=== PATIENT | female | born 1960 | race Caucasian/White ===

== ENCOUNTER → 2018-06-28 09:33 | Outpatient (CLI) | payer OTHER, SELFPAY ==
--- NOTE | 2018-06-28 09:38 | RAD_ITS ---
STUDY: X-RAY - LEFT KNEE REASON FOR EXAM: Female, 57 years old. Knee pain, fall 6 months ago. TECHNIQUE: 3 view(s) of the knee. COMPARISON: None. FINDINGS: Normal visualized distal femur. Normal visualized proximal tibia and fibula. Normal proximal tibiofibular articulation. Is mild medial and lateral compartment joint space loss without significant osteophyte formation. Ultrasound Normal patellofemoral articulation. The soft tissue structures are unremarkable. RAD/Knee 3 Views IMPRESSION: Mild medial lateral joint space arthrosis with otherwise no significant osteophyte formation or effusion. No evidence of acute fracture. Electronically Signed: Noel Tubbs DO at 9:07 EDT , Service support ,
== END ==
PROVIDERS: Family Provider Family Medicine; PCP Family Medicine; Visit Provider Family Medicine
DX: M25.562 Pain in left knee (principal)
CPT/HCPCS: 73562

== ENCOUNTER → 2018-08-21 14:02 | Outpatient (CLI) | payer OTHER, SELFPAY ==
[2018-08-21 16:10] LABS: Anion Gap 10 (5-15); BUN 18 mg/dL (7-18); BUN/Creat Ratio 20.2 RATIO (10-20); Calcium,Total 8.1 mg/dL (8.5-10.1); Chloride 103 mmol/L (98-107); Creatinine, Serum 0.89 mg/dL (0.55-1.02); EST Glomerular Filtration Rate 69 mL/min (>60); Est Glom Filt Rate - Afr Amer 84 mL/min (>60); Glucose 107 mg/dL (74-106); Potassium 3.4 mmol/L (3.5-5.1); Sodium Level 141 mmol/L (136-145); Thyroid Stim Hormone (TSH) 1.61 uIU/mL (0.358-3.74)
== END ==
PROVIDERS: Family Provider Family Medicine; PCP Family Medicine; Visit Provider Family Medicine
DX: E66.9 Obesity, unspecified (principal)
CPT/HCPCS: 36415; 80048; 84443

== ENCOUNTER → 2018-09-16 14:41 | Outpatient (CLI) | payer OTHER, SELFPAY ==
[2018-09-07 13:07] VITALS: BMI 38.0
[2018-09-20 12:20] LABS: HPV Reflexed? NOT INDICATED
== END ==
PROVIDERS: Visit Provider Obstetrics & Gynecology
DX: Z12.4 Encounter for screening for malignant neoplasm of cervix (principal)
CPT/HCPCS: 88175; G0145

== ENCOUNTER → 2018-10-11 20:34 | Outpatient (CLI) | payer OTHER, SELFPAY | PROVIDERS: Referring Provider Internal Medicine Critical Care Medicine; Visit Provider Internal Medicine Critical Care Medicine | DX: G47.33 Obstructive sleep apnea (adult) (pediatric) (principal) | CPT/HCPCS: 95811 ==

== ENCOUNTER → 2018-11-13 12:20 | Outpatient (CLI) | payer OTHER, SELFPAY ==
[2018-09-07 13:07] VITALS: BMI 38.0
--- NOTE | 2018-11-13 12:22 | BI_ITS ---
MAMMOGRAPHY - BILATERAL SCREENING REASON FOR EXAM: Female, 57 years old. Routine annual screening examination. PERTINENT HISTORY: Aunt with breast cancer. TECHNIQUE: Digital bilateral breast puma (3D mammographic acquisition) in the CC and MLO projections. 2-D mediolateral oblique (MLO) and craniocaudad (CC) views of both breasts were obtained. CAD: Full Field Digital Mammography with Computer Added Detection was performed. COMPARISON: Comparison is made with prior study dated March 01, 2016 and July 22, 2014. FINDINGS: Breast Composition: The breasts are almost entirely fatty. There are no dominant masses or suspicious calcifications. No other significant abnormalities are identified. There has been no significant change since the prior study. BI/SCREENING MAMM (CAD), BILAT IMPRESSION: Stable bilateral screening mammogram. Yearly follow-up mammogram recommended. (A) ASSESSMENT CATEGORY: BIRADS Category 1: Negative. A letter regarding these results will be sent to the patient by the facility within 30 days. Approximately 10% of breast cancers are not detected by mammography. A normal mammogram should not delay biopsy of a clinically suspicious abnormality. [id number] Electronically Signed: Pa Foley MD at 14:20 EST , Service support ,
== END ==
PROVIDERS: Family Provider Family Medicine; PCP Family Medicine; Referring Provider Obstetrics & Gynecology; Visit Provider Obstetrics & Gynecology
DX: Z12.31 Encounter for screening mammogram for malignant neoplasm of breast (principal)
CPT/HCPCS: 77063; 77067

== ENCOUNTER 2019-04-25 12:50 | Emergency (ER) | payer OTHER, SELFPAY ==
[2018-11-21 10:54] VITALS: BMI 38.0
[2019-04-25 12:55] VITALS: BP 186/105; PULSE 74; RESP 24; TEMP 37.2; O2SAT 97; BMI 38.0
--- NOTE | 2019-04-25 13:01 | EKG12_ITS ---
Test Reason : CP Blood Pressure : / mmHG Vent. Rate : 071 BPM Atrial Rate : 071 BPM P-R Int : 158 ms QRS Dur : 086 ms QT Int : 408 ms P-R-T Axes : 038 014 061 degrees QTc Int : 443 ms Normal sinus rhythm Low voltage QRS Borderline ECG Confirmed by SAMANTHA COOK, SELVIN ([id number]), editor magazine LORRAINE SOMMER ([id number]) on 04/28/2019 12:56:09 PM Referred By: BARBARA Confirmed By:SELVIN SINGH MD
[2019-04-25 13:02] VITALS: BP 165/90; PULSE 65; PULSE 66; RESP 24; TEMP 37.2; O2SAT 97; O2SAT 98
--- NOTE | 2019-04-25 13:06 | RAD_ITS ---
STUDY: X-RAY CHEST REASON FOR EXAM: Female, 58 years old. Chest pain. TECHNIQUE: Single AP portable view of the chest. COMPARISON: None. FINDINGS: EKG electrodes are seen. The lungs are clear and expanded. There is no demonstrated pleural abnormality. Normal size heart. Normal mediastinum and ayse. Normal visualized pulmonary arteries. There is atherosclerotic tortuosity of the aortic arch and descending thoracic aorta. Normal visualized thoracic spine. Normal visualized ribs, clavicles, and shoulders. There is no demonstrated abnormality of the visualized soft tissue structures of the upper abdomen. RAD/Chest 1 View (Portable) IMPRESSION: Chest pain. The lungs are clear. Electronically Signed: Pa Foley, at 13:38 EDT , Service support ,
[2019-04-25 13:08] VITALS: BMI 40.7
[2019-04-25 13:09] LABS: Absolute Lymphocyte Count 3.05 X10^3/uL (0.83-4.51); Absolute Neutrophil Count 3.5 X10^3/uL (2.0-7.7); Basophil% 1.3 % (0-1); Eosinophil# 0.36 X10^3/uL; Eosinophils% 4.7 % (0-5); Hematocrit 40.3 % (37-47); Hemoglobin 13.2 g/dL (12.0-15.0); Lymphocyte # 3.05 X10^3/ul (4.0); Lymphocyte % 39.4 % (19-41); Mean Corp Hgb Conc 32.8 g/dL (32-36); Mean Corpuscular Hgb 28.6 pg (27.0-32.0); Mean Corpuscular Volume 87.2 fL (81-99); Mean Platelet Vol. 10.1 fl (6.2-12.0); Monocyte# 0.68 X10^3/uL; Monocyte% 8.8 % (0-10); NRBC Flagged by Analyzer 0 % (0-5); Neutrophil # 3.53 X10^3/uL (2.7-7.7); Neutrophil % 45.5 % (47-70); Platelet Count 260 K/mm3 (150-450); RBC Distribution Width CV 13.4 % (11.6-14.6); RBC Distribution Width SD 42.7 fl (35.1-43.9); Red Blood Count 4.62 M/mm3 (4.2-5.4); White Blood Count 7.7 K/mm3 (4.4-11.0)
--- NOTE | 2019-04-25 13:16 | ED.VISSUMM ---
- ER Visit Summary Date of Service: 04/25/19 Chief Complaint: Right chest wall and posterior shoulder pain History of Present Illness: The patient is a 58 F prior cardiac disease. Negative stress test within the last 5 years. Patient states she was in the shower turn and felt pain on her right chest and posterior shoulder. Hurts to move. She thinks she injured her chest wall and muscles. Prior to today she is had no recent exertional chest pain or exertional dyspnea. No history of DVT or PE. No recent travel, surgery or immobilization. She does have a history of hypertension. She denies any hemoptysis. No leg swelling. She took ibuprofen prior to arrival. Physical Examination: Middle-aged female no acute distress. Vital signs are stable. Afebrile. Pulse ox is 97% on room air no signs of hypoxia. HEENT exam unremarkable. Neck nontender no JVD. Lungs clear to auscultation bilaterally. Heart regular rate and rhythm no murmur rate about 70. Chest wall reproducibly tender over right chest wall. No subcu air crepitance. No bruising. Abdomen soft and nontender. Normal bowel sounds no peritoneal signs. Remedies moves all 4. Calves are nontender without edema or cords. Neurologically she is awake and alert with no focal motor deficits. Back the soft tissue along her scapula medially is tender to palpation consistent with a myofascial strain. Clinically I think this is a myofascial strain. Test Results: CBC normal white count of 7. Normal hemoglobin. Chemistries are normal. Troponin normal. EKG sinus rhythm rate 71 no acute abnormality. No ischemia no AL. Chest x-ray normal cardiac silhouette mediastinum. No acute abnormality one view portable read by myself and radiologist. Emergency Department Course and Treatment: Undergo cardiac work-up but clinically I think this is chest wall and posterior shoulder strain. Repeat exam 1520 unchanged. Consistent with chest wall strain. Treatment Plan:. Motrin for pain. Follow-up as needed. Disposition: Discharge Impression: Acute chest wall and right posterior shoulder upper back muscle strain This note was generated with [employer] dictation software. It may contain incorrect words, spelling, and punctuation that were not noted in review of the chart prior to signing ED Disposition - Plan for ED Patient: Referrals: Raul Brooks MD [Primary Care Provider] -
[2019-04-25 13:29] LABS: Anion Gap 3 (5-15); BUN 17 mg/dL (7-18); BUN/Creat Ratio 20.8 RATIO (10-20); Calcium,Total 8.9 mg/dL (8.5-10.1); Chloride 104 mmol/L (98-107); Creatinine, Serum 0.82 mg/dL (0.55-1.02); EST Glomerular Filtration Rate 76 mL/min (>60); Est Glom Filt Rate - Afr Amer 92 mL/min (>60); Estimated Creatinine Clearance 75.44 ml/min; Glucose 107 mg/dL (74-106); Potassium 3.6 mmol/L (3.5-5.1); Sodium Level 136 mmol/L (136-145)
[2019-04-25 15:20] VITALS: BP 140/80; PULSE 55; RESP 20; O2SAT 96
--- NOTE | 2019-04-25 15:20 | ED.DEP ---
ED Disposition - Plan for ED Patient: Disposition: Home or Assisted Living Instructions: Chest Wall Strain Referrals: Raul Brooks MD [Primary Care Provider] - As Needed Additional Instructions: Motrin for pain and inflammation in your chest wall. Ice to decrease inflammation. Hot shower warm bath to relax the muscles.
== END 2019-04-25 15:30 | disposition home or self-care (01) ==
PROVIDERS: Emergency Provider Emergency Medicine; Family Provider Family Medicine; PCP Family Medicine
DX: S29.011A Strain of muscle and tendon of front wall of thorax, initial encounter (principal); S29.012A Strain of muscle and tendon of back wall of thorax, initial encounter; X58.XXXA Exposure to other specified factors, initial encounter; Y93.E1 Activity, personal bathing and showering; Y92.9 Unspecified place or not applicable; I10 Essential (primary) hypertension; Z85.820 Personal history of malignant melanoma of skin; Z79.899 Other long term (current) drug therapy
CPT/HCPCS: 71045; 80048; 84484; 85025; 93005; 99284; A4216

== ENCOUNTER → 2019-08-23 10:01 | Outpatient (CLI) | payer OTHER, SELFPAY ==
[2019-08-23 12:47] LABS: Anion Gap 7 (5-15); BUN 14 mg/dL (7-18); BUN/Creat Ratio 17.9 RATIO (10-20); Calcium,Total 8.9 mg/dL (8.5-10.1); Chloride 103 mmol/L (98-107); Cholesterol 172 mg/dL (200); Creatinine, Serum 0.78 mg/dL (0.55-1.02); EST Glomerular Filtration Rate 80 mL/min (>60); Est Glom Filt Rate - Afr Amer 97 mL/min (>60); Glucose 91 mg/dL (74-106); High Density Lipoprotein 62 mg/dL; Sodium Level 140 mmol/L (136-145); Thyroid Stim Hormone (TSH) 1.52 uIU/mL (0.358-3.74); Triglycerides 88 mg/dL; Very Low Density Lipoprotein 18 mg/dL (5-40)
== END ==
PROVIDERS: Family Provider Family Medicine; PCP Family Medicine; Referring Provider Family Medicine; Visit Provider Family Medicine
DX: E03.9 Hypothyroidism, unspecified (principal); I10 Essential (primary) hypertension
CPT/HCPCS: 36415; 80048; 80061; 84443

== ENCOUNTER → 2019-12-02 | Outpatient (CLI) | payer OTHER, SELFPAY ==
[2019-12-01 15:36] VITALS: BMI 38.0
[2019-12-05 05:45] LABS: HPV APTIMA, High Risk Negative (Negative)
== END | disposition home or self-care (01) ==
LOC: LABSPEC 14:55
PROVIDERS: PCP Family Medicine; Referring Provider Obstetrics & Gynecology; Visit Provider Obstetrics & Gynecology
DX: Z12.4 Encounter for screening for malignant neoplasm of cervix (principal)
CPT/HCPCS: 87624; 88175; G0145

== ENCOUNTER → 2019-12-23 12:59 | Outpatient (CLI) | payer OTHER, SELFPAY ==
[2019-12-01 15:36] VITALS: BMI 38.0
[2019-12-12 17:48] VITALS: BMI 40.1
--- NOTE | 2019-12-23 12:53 | BD_ITS ---
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 COMPARISON: None. FINDINGS: Lumbar Spine (L1-L4): g/cm2 (1.053) / T-score (-0.9) / Z-score (0.2) Findings are suggestive of normal bone density with a low fracture risk. Left Femur Total: g/cm2 (0.945) / T-score (-0.5) / Z-score (0.4) Left Femoral Neck: g/cm2 (0.894) / T-score (-1.0) / Z-score (0.2) Right Femur Total: g/cm2 (1.018) / T-score (0.1) / Z-score (0.9) Right Femoral Neck: g/cm2 (1.025) / T-score (-0.1) / Z-score (1.1) BD/Dexa Bone Density Study IMPRESSION: The patient is considered normal as outlined below according to World Josue Organization (WHO) criteria with a low fracture risk. Reference Information: The T-score is the number of standard deviations above or below the standard which is normal for young adults at their peak bone mineral density. The World Health Organization (WHO) interprets the T-scores as follows: Above -1 Normal bone density Between -1 and -2.5 Osteopenia Equal to / or below -2.5 Osteoporosis As a practical clinical guideline, osteopenia may be graded as follows: Mild -1 through -1.5 Moderate -1.6 through -2.0 Severe -2.1 through -2.4 The Z-score is the number of standard deviations above or below age-matched controls. A Z-score of less than -1.5 would be considered abnormal. References: 1. NIH Osteoporosis and Related Bone Diseases http://www.osteo.org 2. International Society for Clinical Densitometry http://www.iscd.org 3. National Osteoporosis Foundation http://www.nof.org Electronically Signed: Pa Foley, at 10:58 EDT , Service support ,
--- NOTE | 2019-12-23 13:01 | BI_ITS ---
MAMMOGRAPHY - BILATERAL SCREENING REASON FOR EXAM: Female, 58 years old. Routine annual screening examination. PERTINENT HISTORY: Aunt with breast cancer. TECHNIQUE: Digital bilateral breast abdoulaye (3D mammographic acquisition) in the CC and MLO projections. 2-D mediolateral oblique (MLO) and craniocaudad (CC) views of both breasts were obtained. CAD: Full Field Digital Mammography with Computer Added Detection was performed. COMPARISON: Comparison is made with prior study dated July 13, 2019 and March 01, 2016. FINDINGS: Breast Composition: The breasts are almost entirely fatty. There are no dominant masses or suspicious calcifications. No other significant abnormalities are identified. There has been no significant change since the prior study. BI/SCREEN MAMM (CAD) W/ABDOULAYE BILAT IMPRESSION: Stable bilateral screening mammogram. Yearly follow-up mammogram recommended. (A) ASSESSMENT CATEGORY: BIRADS Category 1: Negative. A letter regarding these results will be sent to the patient by the facility within 30 days. Approximately 10% of breast cancers are not detected by mammography. A normal mammogram should not delay biopsy of a clinically suspicious abnormality. [id number] Electronically Signed: Pa Foley, at 14:28 EDT , Service support ,
== END ==
PROVIDERS: PCP Family Medicine; Referring Provider Obstetrics & Gynecology; Visit Provider Obstetrics & Gynecology
DX: Z12.31 Encounter for screening mammogram for malignant neoplasm of breast (principal); Z13.820 Encounter for screening for osteoporosis
CPT/HCPCS: 77063; 77067; 77080

== ENCOUNTER → 2020-04-17 09:35 | Outpatient (CLI) | payer OTHER, SELFPAY ==
[2019-12-12 17:48] VITALS: BMI 40.1
[2020-04-17 10:57] LABS: Anion Gap 5 (5-15); BUN 16 mg/dL (7-18); BUN/Creat Ratio 22.7 RATIO (10-20); Calcium,Total 8.5 mg/dL (8.5-10.1); Chloride 101 mmol/L (98-107); Cholesterol 172 mg/dL (200); Creatinine, Serum 0.71 mg/dL (0.55-1.02); EST Glomerular Filtration Rate 90 mL/min (>60); Est Glom Filt Rate - Afr Amer 109 mL/min (>60); Glucose 104 mg/dL (74-106); High Density Lipoprotein 60 mg/dL; Potassium 3.9 mmol/L (3.5-5.1); Sodium Level 139 mmol/L (136-145); Thyroid Stim Hormone (TSH) 1.11 uIU/mL (0.358-3.74); Triglycerides 69 mg/dL; Very Low Density Lipoprotein 14 mg/dL (5-40)
== END ==
PROVIDERS: PCP Family Medicine; Referring Provider Family Medicine; Visit Provider Family Medicine
DX: I10 Essential (primary) hypertension (principal); E03.9 Hypothyroidism, unspecified
CPT/HCPCS: 36415; 80048; 80061; 84443

== ENCOUNTER → 2020-10-18 08:56 | Outpatient (CLI) | payer OTHER, SELFPAY ==
[2019-12-12 17:48] VITALS: BMI 40.1
[2020-10-18 10:53] LABS: Anion Gap 6 (5-15); BUN 17 mg/dL (7-18); BUN/Creat Ratio 22.5 RATIO (10-20); Calcium,Total 8.7 mg/dL (8.5-10.1); Chloride 104 mmol/L (98-107); Cholesterol 178 mg/dL (200); Creatinine, Serum 0.76 mg/dL (0.55-1.02); EST Glomerular Filtration Rate 83 mL/min (>60); Est Glom Filt Rate - Afr Amer 101 mL/min (>60); Free T3 2.4 pg/mL (2.18-3.98); Glucose 90 mg/dL (74-106); High Density Lipoprotein 60 mg/dL; Potassium 3.8 mmol/L (3.5-5.1); Sodium Level 140 mmol/L (136-145); T4 Total, Thyroxin 9.8 ug/dL (4.8-13.9); Triglycerides 89 mg/dL; Very Low Density Lipoprotein 18 mg/dL (5-40)
== END ==
PROVIDERS: PCP Family Medicine; Referring Provider Family Medicine; Visit Provider Family Medicine
DX: I10 Essential (primary) hypertension (principal); E66.9 Obesity, unspecified; E03.9 Hypothyroidism, unspecified
CPT/HCPCS: 36415; 80048; 80061; 84436; 84443; 84481

== ENCOUNTER → 2021-08-27 11:26 | Outpatient (CLI) | payer OTHER, SELFPAY ==
[2021-08-27 13:10] LABS: Anion Gap 3 (5-15); BUN 17 mg/dL (7-18); BUN/Creat Ratio 23.5 RATIO (10-20); Chloride 104 mmol/L (98-107); Cholesterol 180 mg/dL (200); Creatinine, Serum 0.72 mg/dL (0.55-1.02); EST Glomerular Filtration Rate 87 mL/min (>60); Est Glom Filt Rate - Afr Amer 106 mL/min (>60); Free T3 2.6 pg/mL (2.18-3.98); Glucose 95 mg/dL (74-106); High Density Lipoprotein 61 mg/dL; Potassium 4.3 mmol/L (3.5-5.1); Sodium Level 139 mmol/L (136-145); T4 Free Direct 1.08 ng/dL (0.76-1.46); Thyroid Stim Hormone (TSH) 1.29 uIU/mL (0.358-3.74); Triglycerides 80 mg/dL; Very Low Density Lipoprotein 16 mg/dL (5-40)
== END ==
PROVIDERS: PCP Family Medicine; Visit Provider Family Medicine
DX: Z00.00 Encounter for general adult medical examination without abnormal findings (principal); E03.9 Hypothyroidism, unspecified
CPT/HCPCS: 36415; 80048; 80061; 84439; 84443; 84481

== ENCOUNTER 2021-11-03 10:08 | Outpatient (CLI) | payer OTHER, SELFPAY ==
--- NOTE | 2021-11-03 10:10 | RAD_ITS ---
STUDY: X-RAY - RIGHT KNEE REASON FOR EXAM: Female, 60 years old. Knee pain. TECHNIQUE: 4 view(s) of the knee. COMPARISON: 09/22/2014. FINDINGS: Mild osteopenia. Normal visualized distal femur. Normal visualized proximal tibia and fibula. Normal proximal tibiofibular articulation. Mild medial compartmental arthrosis with small osteophytes. Mild arthrosis of the lateral compartment. Mild arthrosis of the patellofemoral compartment. The soft tissue structures are unremarkable. RAD/Knee 3 Views IMPRESSION: Mild osteopenia. Mild tricompartmental arthrosis. No acute abnormality, chondrocalcinosis, erosive changes or periostitis. Electronically Signed: Tj Vasquez MD at 11:38 EST ,
== END 2021-11-03 23:59 | disposition short-term general hospital (02) ==
LOC: MTLAB 10:09
PROVIDERS: PCP Family Medicine; Referring Provider Family Medicine; Visit Provider Family Medicine
DX: M17.11 Unilateral primary osteoarthritis, right knee (principal)
CPT/HCPCS: 73562

== ENCOUNTER 2021-11-19 11:34 | Outpatient (CLI) | payer OTHER, SELFPAY ==
--- NOTE | 2021-11-19 11:51 | RAD_ITS ---
STUDY: X-RAY - RIGHT ELBOW REASON FOR EXAM: Female, 60 years old. Right and marked shoulder pain. TECHNIQUE: 3 view(s) of the elbow. COMPARISON: None. FINDINGS: Normal visualized humerus, radius and ulna. Normal radiocapitellar and ulnotrochlear articulations. The soft tissue structures are unremarkable. RAD/Elbow min 3 Views IMPRESSION: Normal x-ray examination of the elbow. Electronically Signed: Rome Thorpe, at 13:00 EST ,
--- NOTE | 2021-11-19 11:51 | RAD_ITS ---
STUDY: X-RAY - RIGHT RADIUS AND ULNA REASON FOR EXAM: Female, 60 years old. Right elbow and forearm pain TECHNIQUE: 2 view(s) of the forearm. COMPARISON: None. FINDINGS: There is no demonstrated soft tissue swelling. Normal visualized radius. Normal visualized ulna. The joint spaces are within normal limits. RAD/Forearm 2 Views IMPRESSION: No demonstrated acute osseous changes. Electronically Signed: Rome Thorpe, at 13:01 EST ,
== END 2021-11-19 23:59 | disposition home or self-care (01) ==
LOC: LAB 11:36 → RAD 11:47
PROVIDERS: PCP Family Medicine; Visit Provider Nurse Practitioner Family
DX: M25.521 Pain in right elbow (principal); M79.631 Pain in right forearm
CPT/HCPCS: 73080; 73090

== ENCOUNTER 2022-01-25 13:21 | Outpatient (CLI) | payer OTHER, SELFPAY ==
--- NOTE | 2022-01-25 13:24 | MRI_ITS ---
STUDY: MR Knee W/O Contrast 01/25/2022 5:14 PM REASON FOR EXAM: Female, 61 years old. fall with instability TECHNIQUE: Standardized fat and water weighted pulse sequences were obtained in all 3 orthogonal planes. COMPARISON: None. FINDINGS: Normal medial meniscus. Normal hyaline cartilage of the medial femorotibial compartment. Normal medial femoral condyle and tibial plateau. Normal medial collateral ligamentous complex (MCL). Normal distal semimembranosus, gracilis and semitendinosus tendons. There is a horizontal tear of the posterior horn of the lateral meniscus with inferior surfacing. There is a lateral perimeniscal cyst. Normal hyaline cartilage of the lateral femorotibial compartment. Normal lateral femoral condyle and tibial plateau. There is a bone bruise inferior to the tibial spines. Normal proximal tibiofibular articulation. Normal lateral collateral (fibular) ligament. Normal popliteus tendon. Normal biceps femoris tendon. Normal anterior cruciate ligament (ACL). Normal posterior cruciate ligament (PCL). Normal congruent patellofemoral articulation. Normal hyaline cartilage of the patellofemoral compartment. Normal medial and lateral patellar retinaculum. Normal quadriceps tendon. Normal patellar tendon. Normal Hoffa''s fat pad. There is a small suprapatellar joint effusion. There is a Patel''s cyst. The soft tissues are unremarkable. The otherwise visualized osseous structures are unremarkable. MRI/Lower Ext Joint Only (Routine) IMPRESSION: There is a small suprapatellar joint effusion. There is a horizontal tear of the posterior horn of the lateral meniscus with inferior surfacing. There is a lateral perimeniscal cyst. There is a bone bruise inferior to the tibial spines. Electronically Signed: Syed James MD at 17:22 EDT Reading Location ID and State: [facility] / [place] , Service support ,
== END 2022-01-25 23:59 | disposition home or self-care (01) ==
PROVIDERS: PCP Family Medicine; Referring Provider Orthopaedic Surgery; Visit Provider Orthopaedic Surgery
DX: M25.361 Other instability, right knee (principal); W19.XXXA Unspecified fall, initial encounter
CPT/HCPCS: 73721

== ENCOUNTER → 2022-10-31 | Outpatient (CLI) | payer OTHER, SELFPAY ==
[2022-11-06 17:03] LABS: HPV APTIMA, High Risk Negative (Negative)
== END | disposition home or self-care (01) ==
LOC: LABSPEC 13:53
PROVIDERS: PCP Family Medicine; Visit Provider Student in an Organized Health Care Education/Training Program
DX: Z12.4 Encounter for screening for malignant neoplasm of cervix (principal)
CPT/HCPCS: 87624; 88175; G0145

== ENCOUNTER → 2022-11-07 | Outpatient (CLI) | payer OTHER, SELFPAY ==
--- NOTE | 2022-11-07 06:53 | BI_ITS ---
MAMMOGRAPHY - BILATERAL SCREENING REASON FOR EXAM: Female, 61 years old. Routine annual screening examination. PERTINENT HISTORY: Aunt with breast cancer. TECHNIQUE: Digital bilateral breast abdoulaye (3D mammographic acquisition) in the CC and MLO projections. 2-D mediolateral oblique (MLO) and craniocaudad (CC) views of both breasts were obtained. CAD: Full Field Digital Mammography with Computer Added Detection was performed. COMPARISON: Comparison is made with prior study of 12/23/2019 and 03/02/2019. FINDINGS: Breast Composition: The breasts are almost entirely fatty. There are no dominant masses or suspicious calcifications. No other significant abnormalities are identified. There has been no significant change since the prior study. BI/SCRN MAMM (CAD)W/ABDOULAYE BILAT IMPRESSION: Stable bilateral screening mammogram. Yearly follow-up mammogram recommended. (A) ASSESSMENT CATEGORY: BIRADS Category 1: Negative. A letter regarding these results will be sent to the patient by the facility within 30 days. Approximately 10% of breast cancers are not detected by mammography. A normal mammogram should not delay biopsy of a clinically suspicious abnormality. [id number] Electronically Signed: Pa Foley MD at 8:52 EST ,
== END | disposition home or self-care (01) ==
LOC: OPBI 06:51
PROVIDERS: PCP Family Medicine; Referring Provider Student in an Organized Health Care Education/Training Program; Visit Provider Student in an Organized Health Care Education/Training Program
DX: Z12.31 Encounter for screening mammogram for malignant neoplasm of breast (principal); Z80.3 Family history of malignant neoplasm of breast
CPT/HCPCS: 77063; 77067

== ENCOUNTER 2023-03-14 07:35 | Day surgery (SDC) | payer OTHER, SELFPAY ==
[2023-03-14 07:47] VITALS: BP 160/86; PULSE 79; RESP 16; TEMP 36.5; O2SAT 93; BMI 37.8
[2023-03-14] MEDS: Lactated Ringers 1,000 ML 15 ML IV (07:55)
--- NOTE | 2023-03-14 08:30 | COLBX_PTH ---
PATIENT: CHARLES KHAN LOC: EN U#:[id number] AGE/SX: 62/F ROOM: RE03/14/[address]: Dr. Josemanuel Sarmiento DO : 1960 BED: DIS: 03/14/2023 SPEC #: [id number] RECD: 03/14/23 10:16 STATUS: JAMA REMichael #: [id number] JULIO: 03/14/23 08:[address]: Josemanuel Sarmiento DEPT: SURGICAL PATHOLOGY RECD BY: Lizbeth Madera ENTERED: 03/14/23 11:04 SP TYPE: COLON BX OTHR DR: Dr. Raul Brooks MD Tissues: Cecum, NOS Procedures: Surgery Specimen Level IV HEADER OPERATION: Colonoscopy ? open access (MAC) PRE-OP DIAGNOSIS: Screening TISSUE SUBMITTED: Cecum polyp MICROSCOPIC DIAGNOSIS Cecal polyp, biopsy: Fragments of hyperplastic polyp. AM:winsome 03/15/2023 MICROSCOPIC DESCRIPTION Slides are reviewed. GROSS DESCRIPTION Received in fixative is one container labeled with the patient's name and designated cecum polyp. The specimen consists of multiple irregular fragments of light harry soft tissue that in aggregate measure 1.0 x 0.2 x 0.1 cm. The specimen is totally submitted in one cassette. / SJ:winsome 03/14/2023 TC:5 CPT: 05719
--- NOTE | 2023-03-14 08:45 | HP.PCM_ITS ---
HPI - General General Date of Admission: 03/14/23 Date of Service: 03/14/23 Chief Complaint: Screening colonoscopy HPI Narrative CHARLES KHAN, is a 62 F who presents today for screening colonoscopy. She had a colonoscopy approximately 12 years ago. She does not have any problems with her bowels. She has a past medical history of GERD, melanoma, hypothyroidism, hypertension which are all under control. Her surgeries are cholecystectomy, C- section, bunionectomy in the past. She is not having any problems with lower GI bleeding, constipation or diarrhea at this time. All other 16 review systems are negative except as pertinent positive mentioned HPI. [facility] Medical History (Updated 03/12/23 @ 15:13 by Poonam Melgar) Anxiety BiPAP (biphasic positive airway pressure) dependence Cancer Gastric reflux GERD (gastroesophageal reflux disease) History of melanoma HTN (hypertension) Hypothyroidism Non-smoker PAWAN (obstructive sleep apnea) Post-menopausal Sleep apnea Thyroid disease Wears glasses Home Medications cetirizine 10 mg tablet (Zyrtec) 10 mg PO DAILY 08/02/18 [History Last Taken Unknown] duloxetine 30 mg capsule,delayed release (Cymbalta) 60 mg PO BREAKFAST 08/02/18 [History Last Taken Unknown] levothyroxine 88 mcg tablet (Synthroid) 88 mcg PO DAILY 08/02/18 [History Last Taken 03/14/23 07:00] metoprolol succinate 25 mg tablet,extended release 24 hr (Toprol XL) 25 mg PO DAILY 08/02/18 [History Last Taken 03/14/23 07:00] omeprazole 20 mg capsule,delayed release 20 mg PO DAILY 08/02/18 [History Last Taken Unknown] duloxetine 30 mg capsule,delayed release 30 mg PO QHS 04/25/19 [History Last Taken Unknown] acetaminophen 500 mg tablet (Tylenol Extra Strength) 1,000 mg PO BID 01/09/23 [History Last Taken Unknown] ibuprofen 400 mg tablet 400 mg PO BID 01/09/23 [History Last Taken Unknown] zolpidem 5 mg tablet (Ambien) 5 mg PO QHS Insomnia 01/09/23 [History Last Taken Unknown] Allergy/AdvReac Type Severity Reaction Status Date / Time No Known Allergies Allergy Verified 03/14/23 07:47 Family History Father Hypertension Prostate cancer Son Diabetes type 1 Surgical History (Updated 03/12/23 @ 15:13 by Poonam Melgar) History of bunionectomy History of History of cholecystectomy Social History (Updated 01/09/23 @ 14:01 by Madelaine Neil) current occupational status: employed Smoking Status: Never smoker alcohol intake: never ROS Review of Systems ROS Unobtainable: other Constitutional Constitutional: Denies fatigue, fever(s), poor appetite, weight gain or weight loss ENT HEENT: Denies mouth lesions Cardiovascular Cardiovascular: Denies abdominal bloating, abdominal edema or abdominal pain Respiratory/Chest Respiratory/Chest: Denies change in mental status, change in phlegm color, chest congestion or chest tightness Gastrointestinal Gastrointestinal: Denies belching, bloating, change in bowel habits, change in stool character, chewing difficulty, coffee ground emesis, constipation, cramping, diarrhea, dyspepsia, dysphagia, early satiety, excessive flatus, fecal incontinence, heartburn, hematemesis, hematochezia, hemorrhoids, loose stools, melena, nausea, odynophagia, rectal bleeding, tenesmus, vomiting or weight changes Genitourinary Genitourinary: Denies abdominal discomfort, burning urination or itching Musculoskeletal Musculoskeletal: Reports as per HPI; Denies muscle weakness or myalgias Integumentary Integumentary: Denies jaundice Neurologic Neurologic: Denies lack of coordination or weakness Psychiatric Psychiatric: Denies confusion, depression, memory loss, mood swings, paranoia or suicidal ideation Endocrine Endocrinology: Denies systems reviewed and no addt'l complaints, except as documented Hematologic/Lymphatic Hematologic/Lymphatic: Denies anemia, easy bleeding, easy bruising or lymphadenopathy Allergic/Immunologic Allergic/Immunologic: Denies systems reviewed and no addt'l complaints, except as documented Vital Signs Vital Signs Vital Signs: 03/14/23 07:47 03/14/23 07:47 Temperature 97.7 F L Temperature Source Temporal Pulse Rate 79 Respiratory Rate 16 Respiratory Pattern Normal Blood Pressure 160/86 H Blood Pressure Mean 110 Blood Pressure Source Monitor Blood Pressure Position Semi-Fowlers Blood Pressure Location Left Arm Pulse Ox 93 Oxygen Delivery Method Room Air Weight Weight: 255 lb 11.779 oz Body Mass Index (BMI) 37.8 Physical Exam Const alert General Appearance: cooperative Orientation / Consciousness: oriented to person HEENT hearing grossly normal bilaterally Head and Scalp: normal to inspection Face and Sinus: face symmetric Nose: external nose normal Mouth: oral and palatal mucosa normal Eyes conjunctivae normal General Eye: normal appearance of both eyes Neck full ROM General: normal visual inspection Lymph Lymphatic: no lymphadenopathy noted Chest inspection of chest normal and palpation of chest normal Chest: symmetrical chest wall rise Resp normal respiratory effort Effort and Inspection: able to speak in complete sentences Cardio regular rate GI non-distended Percussion: normal to percussion Rectal Exam: deferred Neuro Speech: speech normal Gait (Neuro): normal gait Assessment & Plan Assessment/Plan (1) Encounter for screening for malignant neoplasm of colon: PLAN: She was explained alternatives, risk, benefits including not withstanding bleeding, infection, sepsis, perforation, need for emergent surgery . She will have an ASA of 2.
[2023-03-14 09:25] VITALS: BP 108/66; BP 160/86; PULSE 66; RESP 18; O2SAT 100
[2023-03-14 09:26] VITALS: BP 110/63; BP 160/86; PULSE 54; RESP 18; TEMP 36.4; O2SAT 100
--- NOTE | 2023-03-14 09:27 | OP.COLON_ITS ---
Patient Name: Faby Shah Procedure Date: 03/14/2023 8:41 AM Date of : 1960 Age: 62 Procedure: Colonoscopy Indications: Screening for colorectal malignant neoplasm Providers: Josemanuel Sarmiento DO Medicines: Monitored Anesthesia Care Patient Profile: This is a 62 year old female. Refer to note in patient chart for documentation of history and physical. Last Colonoscopy: more than 10 years ago. Complications: No immediate complications. Procedure: Pre-Anesthesia Assessment: - Prior to the procedure, a History and Physical was performed, and patient medications and allergies were reviewed. The patient is competent. The risks and benefits of the procedure and the sedation options and risks were discussed with the patient. All questions were answered and informed consent was obtained. Patient identification and proposed procedure were verified by the physician in the pre-procedure area. Mental Status Examination: alert and oriented. Airway Examination: normal oropharyngeal airway and neck mobility. Respiratory Examination: clear to auscultation. CV Examination: normal. Prophylactic Antibiotics: The patient does not require prophylactic antibiotics. Prior Anticoagulants: The patient has taken no previous anticoagulant or antiplatelet agents. ASA Grade Assessment: II - A patient with mild systemic disease. After reviewing the risks and benefits, the patient was deemed in satisfactory condition to undergo the procedure. The anesthesia plan was to use monitored anesthesia care (MAC). Immediately prior to administration of medications, the patient was re-assessed for adequacy to receive sedatives. The heart rate, respiratory rate, oxygen saturations, blood pressure, adequacy of pulmonary ventilation, and response to care were monitored throughout the procedure. The physical status of the patient was re-assessed after the procedure. After I obtained informed consent, the scope was passed under direct vision. Throughout the procedure, the patient's blood pressure, pulse, and oxygen saturations were monitored continuously. The pediatric colonoscope was introduced through the anus and advanced to the cecum, identified by appendiceal orifice and ileocecal valve. The colonoscopy was performed without difficulty. The patient tolerated the procedure well. The quality of the bowel preparation was good. Scope In: 8:52:48 AM Scope Withdrawal Time 0 hours 9 minutes 26 seconds Scope Out: 9:21:23 AM Total Procedure Duration Time 0 hours 28 minutes 35 seconds Findings: The perianal and digital rectal examinations were normal. A 5 mm polyp was found in the cecum. The polyp was sessile. The polyp was removed with a jumbo cold forceps. Resection and retrieval were complete. Verification of patient identification for the specimen was done. Estimated blood loss was minimal. The exam was otherwise normal throughout the examined colon. Impression: - One 5 mm polyp in the cecum, removed with a jumbo cold forceps. Resected and retrieved. Recommendation: - Discharge patient to home. - Resume previous diet. - Continue present medications. - Await pathology results. - Repeat colonoscopy in 5 years for surveillance. Procedure Code(s): --- Professional --- 71104, Colonoscopy, flexible; with biopsy, single or multiple CPT copyright 2017 [employer]. All rights reserved. The codes documented in this report are preliminary and upon shipping order clerk review may be revised to meet current compliance requirements. Josemanuel Sarmiento DO 03/14/2023 9:26:25 AM This report has been signed electronically. Number of Addenda: 0 Note Initiated On: 03/14/2023 8:41 AM
--- NOTE | 2023-03-14 09:27 | OP.CCLET_ITS ---
03/14/2023 Raul Brooks MD [address] [place] [address] Re : Colonoscopy procedure for Faby Shah Dear Dr. Brooks This procedure was performed on Tuesday, March 14, 2023. My impressions and recommendations are as follows: Impressions : - One 5 mm polyp in the cecum, removed with a jumbo cold forceps. Resected and retrieved. Recommendations : - Discharge patient to home. - Resume previous diet. - Continue present medications. - Await pathology results. - Repeat colonoscopy in 5 years for surveillance. My findings are described in the full procedure note, which is enclosed. If I can be of further assistance, please feel free to contact me at . Sincerely, Josemanuel Sarmiento, 03/14/2023 9:26:25 AM This report has been signed electronically.
[2023-03-14 09:34] VITALS: BP 113/66; BP 160/86; PULSE 56; RESP 18; O2SAT 100
[2023-03-14 09:39] VITALS: BP 116/78; BP 160/86; PULSE 57; RESP 18; TEMP 36.2; O2SAT 100
[2023-03-14 10:00] VITALS: BP 160/86
== END 2023-03-14 10:08 | disposition home or self-care (01) ==
LOC: EN 07:35 → AC 07:36
PROVIDERS: PCP Family Medicine; Referring Provider Family Medicine; Visit Provider Internal Medicine Gastroenterology
PROC: 0DJD8ZZ Inspection of Lower Intestinal Tract, Via Natural or Artificial Opening Endoscopic (ICD-10-PCS; CPT 45378; principal; 2023-03-14 08:25)
DX: Z12.11 Encounter for screening for malignant neoplasm of colon (principal); K21.9 Gastro-esophageal reflux disease without esophagitis; I10 Essential (primary) hypertension; K63.5 Polyp of colon; E03.9 Hypothyroidism, unspecified; G47.33 Obstructive sleep apnea (adult) (pediatric); Z90.49 Acquired absence of other specified parts of digestive tract
CPT/HCPCS: 45380; 88305; J7120; J2405

== ENCOUNTER → 2023-05-09 | Outpatient (CLI) | payer OTHER, SELFPAY ==
--- NOTE | 2023-05-09 17:00 | RAD_ITS ---
EXAM: XR LUMBOSACRAL SPINE COMPLETE WITH FLEXION/EXTENSION, 6 OR MORE VIEWS CLINICAL INDICATION: pain TECHNIQUE: Lateral, frontal, oblique and lateral flexion/extension views of the lumbar spine and sacrum. COMPARISON: No relevant prior studies available. FINDINGS: VERTEBRAE: There is no change in alignment with flexion or extension views. Preserved vertebral body height. No fracture. No spondylolisthesis. Preservation of the normal lumbar lordosis. No significant facet arthropathy. No instability. DISC SPACES: There is disc space narrowing at L4-5 and L5-S1. GASTROINTESTINAL TRACT: Unremarkable as visualized. Included bowel gas pattern is non-obstructive. OTHER FINDINGS: There is narrowing at these levels. RAD/L/S Spine w Bend Min 6 Vw IMPRESSION: 1. No acute osseous abnormalities of the lumbar spine. 2. Degenerative changes in the lower lumbar spine with disc space narrowing and bony neural foraminal narrowing. Electronically Signed: Jeremy Lozada MD at 19:02 EDT ,
== END | disposition home or self-care (01) ==
PROVIDERS: PCP Family Medicine; Referring Provider Family Medicine; Visit Provider Family Medicine
DX: M54.9 Dorsalgia, unspecified (principal)
CPT/HCPCS: 72114

== ENCOUNTER 2023-06-25 12:01 | Emergency (ER) | payer OTHER, SELFPAY ==
[2023-06-25 12:04] VITALS: BP 156/98; PULSE 80; RESP 14; TEMP 36.1; O2SAT 95; BMI 40.6
--- NOTE | 2023-06-25 12:19 | MRI_ITS ---
EXAM: MR LUMBAR SPINE WITHOUT INTRAVENOUS CONTRAST CLINICAL INDICATION: weakness, right leg, back pain TECHNIQUE: Multiplanar and multisequence MR images of the lumbar spine without intravenous contrast. COMPARISON: No relevant prior studies available. FINDINGS: VERTEBRAE: Vertebral body heights are preserved. Normal vertebral bodies and posterior elements. Normal alignment. No spondylolisthesis. There is preservation of the normal lumbar lordosis. SPINAL CORD: Normal. Normal position and signal intensity of the conus medullaris. SOFT TISSUES: Normal. DISCS/SPINAL CANAL/NEURAL FORAMINA: L1-L2: Normal. Normal disc height and morphology. Normal spinal canal and lateral recesses. Normal neuroforamina. L2-L3: Mild to moderate disc space narrowing. Broad-based disc protrusion, ligamentous hypertrophy and mild facet arthropathy results in mild narrowing of the spinal canal and neural foramina. L3-L4: Mild to moderate disc space narrowing. Broad-based disc protrusion, ligamentous hypertrophy and facet arthropathy results in mild to moderate narrowing of the spinal canal and moderate bilateral neural foraminal narrowing. L4-L5: Moderate disc space narrowing with Modic type II endplate changes. Broad-based disc protrusion, ligamentous hypertrophy and facet arthropathy results in mild spinal stenosis and moderate left and moderate to severe right neural foraminal stenosis. L5-S1: Mild posterior disc space narrowing broad-based disc protrusion and facet arthropathy results in minimal impression on the thecal sac and moderate bilateral neural foraminal narrowing. Left paracentral annular fissure is noted. MRI/Spine Lumbar (Routine) IMPRESSION: Multilevel disc and facet joint changes. Mild to moderate spinal stenosis at L3-4 and mild spinal stenosis at L2-3 and L4-5. Prominent multilevel neural foraminal narrowing as described. Electronically Signed: Benito Pratt MD at 14:14 EDT ,
--- NOTE | 2023-06-25 12:20 | ED.VIS.BACK ---
HPI History of Present Illness Chief Complaint: Back Detail of Chief Complaint: Back pain Informant: patient Narrative Narrative: Patient presents to the emergency department complaint of back pain x2 weeks. Patient was seen by her primary care physician and had plain x-ray of her back. She now has severe pain with standing and trying to walk. She complains of weakness in her right leg and feels like a noodle. She is still able to bear weight but has a hard time with steps. She denies loss of bowel or bladder function. She denies fever. She denies falls or injury to her back. She denies urinary symptoms. Patient was referred to back specialist but cannot get in for some time. Prior similar symptoms: No PFSH PFSH Medical History (Reviewed 04/12/23 @ 08:55 by Miladys Kennedy BUSINESS SUPPORT MANAGER, BUSINESS SUPPORT MANAGER-C) Anxiety BiPAP (biphasic positive airway pressure) dependence Cancer Gastric reflux GERD (gastroesophageal reflux disease) History of melanoma HTN (hypertension) Hypothyroidism Non-smoker PAWAN (obstructive sleep apnea) Post-menopausal Sleep apnea Thyroid disease Wears glasses Home Medications cetirizine 10 mg tablet (Zyrtec) 10 mg PO DAILY 08/02/18 [History Last Taken Unknown] duloxetine 30 mg capsule,delayed release (Cymbalta) 60 mg PO BREAKFAST 08/02/18 [History Last Taken Unknown] levothyroxine 88 mcg tablet (Synthroid) 88 mcg PO DAILY 08/02/18 [History Last Taken 03/14/23 07:00] metoprolol succinate 25 mg tablet,extended release 24 hr (Toprol XL) 25 mg PO DAILY 08/02/18 [History Last Taken 03/14/23 07:00] omeprazole 20 mg capsule,delayed release 20 mg PO DAILY 08/02/18 [History Last Taken Unknown] duloxetine 30 mg capsule,delayed release 30 mg PO QHS 04/25/19 [History Last Taken Unknown] acetaminophen 500 mg tablet (Tylenol Extra Strength) 1,000 mg PO BID 01/09/23 [History Last Taken Unknown] ibuprofen 400 mg tablet 400 mg PO BID 01/09/23 [History Last Taken Unknown] zolpidem 5 mg tablet (Ambien) 5 mg PO QHS Insomnia 01/09/23 [History Last Taken Unknown] methylprednisolone 4 mg tablets in a dose pack (Medrol (Mikey)) 4 mg PO DAILY #21 tabs 09/18/23 [Rx Last Taken Unknown] Allergy/AdvReac Type Severity Reaction Status Date / Time No Known Allergies Allergy Verified 06/25/23 12:03 Family History (Reviewed 04/12/23 @ 08:55 by Miladys Kennedy BUSINESS SUPPORT MANAGER, BUSINESS SUPPORT MANAGER-C) Father Hypertension Prostate cancer Son Diabetes type 1 Surgical History History of bunionectomy History of History of cholecystectomy Social History current occupational status: employed Smoking Status: Never smoker alcohol intake: never ROS ROS ED Review of Systems ROS Unobtainable: other Constitutional Constitutional ED: Reports lethargy; Denies chills, fever(s), sweats or weight loss Eyes Eyes: Denies blurry vision, change in vision or diplopia ENT ENT ED: Denies rhinorrhea or sore throat Cardiovascular Cardiovascular: Denies chest pain, orthopnea or racing heartbeat Respiratory/Chest Respiratory/Chest: Denies cough, dyspnea, dyspnea on exertion, orthopnea or sputum Gastrointestinal Gastrointestinal: Denies abdominal pain, diarrhea, nausea or vomiting Genitourinary Genitourinary ED: Denies dysuria, hematuria or urinary frequency Musculoskeletal Musculoskeletal: Reports back pain; Denies arthralgias, myalgias or neck pain Integumentary Denies abscess, Abrasions or rash Neurologic Neurologic: Reports weakness and other Details: Weakness right leg ; Denies headache(s) Psychiatric Psychiatric: Denies anxiety, depression or suicidal thoughts Endocrine Endocrinology: Denies polydipsia, polyphagia or polyuria Hematologic/Lymphatic Hematologic/Lymphatic: Denies easy bleeding, easy bruising or lymphadenopathy Allergic/Immunologic Allergic/Immunologic ED: Denies mouth swelling, tongue swelling or urticaria EXAM Physical Exam Const Vital Signs: 06/25/23 12:04 06/25/23 14:28 Temperature 97 F L Temperature Source Temporal Pulse Rate 80 68 Respiratory Rate 14 16 Blood Pressure 156/98 H 149/62 H Blood Pressure Mean 117 91 Pulse Ox 95 98 Oxygen Delivery Method Room Air Room Air Positive well nourished and well developed General Appearance ED: well developed and NAD HEENT Reports TM's clear and moist mucous membranes normocephalic and atraumatic; Negative for trauma or tenderness Tympanic Membrane ED: Yes TM's clear Eyes PERRL and EOMs intact bilaterally General Eye ED: Negative for pale conjunctiva or scleral icterus Neck no lymphadenopathy, supple and no JVD General: Negative for tenderness Chest Wall inspection of chest normal and palpation of chest normal Chest: Negative for tenderness Resp normal respiratory effort and clear to auscultation bilaterally Effort and Inspection: Negative for respiratory distress or pain with movement Auscultation: Negative for rhonchi, wheezes or diminished lung sounds Cardio regular rate, regular rhythm, S1 normal heart sound, S2 normal heart sound and no murmurs Peripheral Pulses: pulses 2+ throughout GI normal to inspection, nondistended, normoactive bowel sounds, soft to palpation, non-tender, non-distended and no masses Back/Spine no CVA tenderness and no thoracic nor lumbar tenderness Back/Spine Narrative: Patient with some tenderness over the lower lumbar spine diffusely. She has negative straight leg raises bilaterally. Deep tendon reflexes are diminished at the patella and Achilles at +1/4 bilaterally. She has normal L5 extension. She has normal sensation to light touch. Extremity normal to inspection General Extremety ED: Negative for edema General Extremity: Negative for edema Neuro oriented x3, CN's II-XII intact bilaterally, no sensory deficits noted and gait normal Sensorium / Orientation: awake, alert, oriented to person, oriented to place and oriented to time Motor Exam: strength 5/5 throughout and strength abnormal Psych mental status grossly normal Skin no rashes or lesions noted and no wounds MDM MDM MDM Narrative Medical decision making narrative: Presents with progressive back pain for last 2 days and now complaining of weakness to her right leg. Concern about radiculopathy. Patient has already had plain x-rays of her back. Patient will have an MRI of her lumbar spine to evaluate further. MRI was read as multilevel disc and facet joint changes. She had mild to moderate spinal stenosis at L3-4 and mild spinal stenosis at L2-3 and L4-5. Patient with prominent multilevel neural foraminal narrowing. Case was discussed with Dr. Carlson. He asked that patient follow-up with his office in 2 days. I will write patient for Medrol Dosepak. Patient will be discharged to home and advised to return if worsening pain, increased weakness, loss of bowel or bladder function, or condition should worsen anyway Radiography Diagnostic Testing: Clinical Impression(s) from Imaging Studies Lumbar Spine MRI 06/25/23 12:19 IMPRESSION: Multilevel disc and facet joint changes. Mild to moderate spinal stenosis at L3-4 and mild spinal stenosis at L2-3 and L4-5. Prominent multilevel neural foraminal narrowing as described. Electronically Signed: Benito Pratt MD at 14:14 EDT , Discharge Plan Triage Chief Complaint: Back ED Provider: Makenzie Meek Dx/Rx/DC Orders Clinical Impression: Lumbar radiculopathy Instructions: ED Sciatica Prescriptions: New methylprednisolone [Medrol (Mikey)] 4 mg tablets,dose pack 4 mg PO DAILY Qty: 21 0RF No Action levothyroxine [Synthroid] 88 mcg tablet 88 mcg PO DAILY metoprolol succinate [Toprol XL] 25 mg tablet extended release 24 hr 25 mg PO DAILY omeprazole 20 mg capsule,delayed release(DR/EC) 20 mg PO DAILY duloxetine [Cymbalta] 30 mg capsule,delayed release(DR/EC) 60 mg PO BREAKFAST cetirizine [Zyrtec] 10 mg tablet 10 mg PO DAILY zolpidem [Ambien] 5 mg tablet 5 mg PO QHS acetaminophen [Tylenol Extra Strength] 500 mg tablet 1,000 mg PO BID ibuprofen 400 mg tablet 400 mg PO BID duloxetine 30 MG capsule,delayed release(DR/EC) 30 mg PO QHS Primary Care Provider: Raul Brooks Referrals: Arturo Carlson DO [Med Staff - Active Staff] - 2 Days Raul Brooks MD [Primary Care Provider] - Disposition Disposition: Home, Self Care Discharge Date/Time: 06/25/23 15:35
[2023-06-25] MEDS: LORazepam 1 MG Tablet PO (12:23)
[2023-06-25 14:28] VITALS: BP 149/62; PULSE 68; RESP 16; O2SAT 98
== END 2023-06-25 15:35 | disposition home or self-care (01) ==
PROVIDERS: Emergency Provider Emergency Medicine; PCP Family Medicine; Visit Provider Emergency Medicine
DX: M54.16 Radiculopathy, lumbar region (principal); I10 Essential (primary) hypertension; Z85.820 Personal history of malignant melanoma of skin; F41.9 Anxiety disorder, unspecified; E03.9 Hypothyroidism, unspecified; K21.9 Gastro-esophageal reflux disease without esophagitis; G47.33 Obstructive sleep apnea (adult) (pediatric); Z79.899 Other long term (current) drug therapy; Z90.49 Acquired absence of other specified parts of digestive tract
CPT/HCPCS: 72148; 99284

== ENCOUNTER → 2023-07-20 | Outpatient (CLI) | payer OTHER, SELFPAY ==
[2023-07-20 10:02] LABS: Absolute Lymphocyte Count 1.94 X10^3/uL (0.83-4.51); Absolute Neutrophil Count 3.3 X10^3/uL (2.0-7.7); Basophil# 0.04 X10^3/uL; Basophil% 0.7 % (0-1); Eosinophil# 0.25 X10^3/uL; Eosinophils% 4.2 % (0-5); Hematocrit 39.1 % (37-47); Hemoglobin 12.3 g/dL (12.0-15.0); Lymphocyte # 1.94 X10^3/ul (0.83-4.51); Lymphocyte % 32.7 % (19-41); Mean Corp Hgb Conc 31.5 g/dL (32-36); Mean Corpuscular Hgb 27.6 pg (27.0-32.0); Mean Corpuscular Volume 87.7 fL (81-99); Mean Platelet Vol. 10.1 fl (6.2-12.0); Monocyte# 0.43 X10^3/uL; Monocyte% 7.2 % (0-10); NRBC Flagged by Analyzer 0 % (0-5); Neutrophil # 3.27 X10^3/uL (2.7-7.7); Platelet Count 294 K/mm3 (150-450); RBC Distribution Width CV 14.7 % (11.6-14.6); RBC Distribution Width SD 47.8 fl (35.1-43.9); Red Blood Count 4.46 M/mm3 (4.2-5.4); White Blood Count 5.9 K/mm3 (4.4-11.0)
[2023-07-20 10:32] LABS: Vitamin D,25 Hydroxy 21.1 ng/mL
[2023-07-20 10:43] LABS: ALB/GLOB Ratio 0.9 RATIO (0.9-2.4); AST(SGOT) 28 U/L (15-37); Alanine Aminotransfer ALT/SGPT 40 U/L (13-56); Albumin, Serum 3.3 g/dL (3.2-5.0); Alkaline Phosphatase 69 U/L (45-117); Anion Gap 4 (5-15); BUN 21 mg/dL (7-18); BUN/Creat Ratio 31.3 RATIO (10-20); Calcium,Total 8.6 mg/dL (8.5-10.1); Chloride 105 mmol/L (98-107); Cholesterol 179 mg/dL (200); Creatinine, Serum 0.67 mg/dL (0.55-1.02); EST Glomerular Filtration Rate 95 mL/min (>60); Est Glom Filt Rate - Afr Amer 115 mL/min (>60); Globulin 3.5 g/dL (2.2-4.2); Glucose 101 mg/dL (74-106); High Density Lipoprotein 63 mg/dL; Potassium 3.9 mmol/L (3.5-5.1); Protein, Total 6.8 g/dL (6.4-8.2); Sodium Level 140 mmol/L (136-145); Thyroid Stim Hormone (TSH) 1.15 uIU/mL (0.358-3.74); Triglycerides 100 mg/dL; Very Low Density Lipoprotein 20 mg/dL (5-40)
== END | disposition home or self-care (01) ==
LOC: MTLAB 08:54
PROVIDERS: PCP Family Medicine; Referring Provider Family Medicine; Visit Provider Family Medicine
DX: M54.16 Radiculopathy, lumbar region (principal); I10 Essential (primary) hypertension
CPT/HCPCS: 36415; 80053; 80061; 82306; 84443; 85025

== ENCOUNTER 2023-08-15 07:36 | Inpatient (IN) | payer OTHER, SELFPAY ==
[2023-08-08 16:15] LABS: Absolute Lymphocyte Count 2.16 X10^3/uL (0.83-4.51); Absolute Neutrophil Count 4.4 X10^3/uL (2.0-7.7); Basophil# 0.05 X10^3/uL; Basophil% 0.7 % (0-1); Eosinophil# 0.25 X10^3/uL; Eosinophils% 3.4 % (0-5); Hematocrit 42.5 % (37-47); Hemoglobin 13.3 g/dL (12.0-15.0); Lymphocyte # 2.16 X10^3/ul (0.83-4.51); Mean Corp Hgb Conc 31.3 g/dL (32-36); Mean Corpuscular Hgb 27.8 pg (27.0-32.0); Mean Corpuscular Volume 88.7 fL (81-99); Mean Platelet Vol. 10.4 fl (6.2-12.0); Monocyte# 0.55 X10^3/uL; Monocyte% 7.4 % (0-10); NRBC Flagged by Analyzer 0 % (0-5); Neutrophil # 4.43 X10^3/uL (2.7-7.7); Neutrophil % 59.4 % (47-70); Platelet Count 266 K/mm3 (150-450); RBC Distribution Width CV 14.3 % (11.6-14.6); RBC Distribution Width SD 46.5 fl (35.1-43.9); Red Blood Count 4.79 M/mm3 (4.2-5.4); White Blood Count 7.5 K/mm3 (4.4-11.0)
[2023-08-08 17:17] LABS: Magnesium 2.2 mg/dL (1.6-2.6)
[2023-08-08 18:05] LABS: HIV - WCH Non-Reactive (Nonreactive); Hepatitis B Surface Antibody Reactive; Hepatitis C Antibody Non-Reactive (Nonreactive)
[2023-08-10 06:08] LABS: Hepatitis A AB, Total Negative (Negative)
[2023-08-14 19:35] VITALS: O2SAT 99
[2023-08-15] VITALS (24 sets, daily range): BP systolic 148–181; BP diastolic 81–97; PULSE 75–98; RESP 11–31; TEMP 36.3–36.8; O2SAT 91–99; BMI 40.6
--- NOTE | 2023-08-15 07:57 | HP.PCM_ITS ---
HPI - General General Date of Admission: 08/15/23 HPI Narrative FABY KHAN, is a 62 F who presents for surgery. MR#: [id number] Acct: [id number] Name: FABY KHAN Rep #: [id number] : 1960 Provider: Dr. Dixon Kim MD Age/Sex: 62/F Location: [facility] [place].[facility] Status: Signed Intake Vital Signs 07/23/2315:03 Height 5 ft 9 in Intake Visit Reasons: lumbar spine Chief Complaint: lumbar spine Accompanied by: Self Is patient in pain?: Yes Allergies No Known Allergies Allergy (Verified 08/07/23 14:32) Medications cetirizine 10 mg tablet (Zyrtec) 10 mg PO DAILY allergy symptoms 08/02/18 [History Confirmed 08/08/23] duloxetine 30 mg capsule,delayed release (Cymbalta) 60 mg PO BREAKFAST anxiety 08/02/18 [History Confirmed 08/08/23] levothyroxine 88 mcg tablet (Synthroid) 88 mcg PO DAILY hypothyroid 08/02/18 [History Confirmed 08/08/23] metoprolol succinate 25 mg tablet,extended release 24 hr (Toprol XL) 25 mg PO DAILY hypertension 08/02/18 [History Confirmed 08/08/23] omeprazole 20 mg capsule,delayed release 20 mg PO DAILY GERD 08/02/18 [History Confirmed 08/08/23] duloxetine 30 mg capsule,delayed release 30 mg PO QHS anxiety 04/25/19 [History Confirmed 08/08/23] acetaminophen 500 mg tablet (Tylenol Extra Strength) 1,000 mg PO BID PAIN 01/09/23 [History Confirmed 08/08/23] ibuprofen 400 mg tablet 400 mg PO BID pain 01/09/23 [History Confirmed 08/08/23] zolpidem 5 mg tablet (Ambien) 5 mg PO QHS Insomnia 01/09/23 [History Confirmed 08/08/23] gabapentin 300 mg capsule 300 mg PO TID PAIN 07/27/23 [History Confirmed 1 10/08/22] PFSH Medical History Anxiety Back pain BiPAP (biphasic positive airway pressure) dependence Cancer Gastric reflux GERD (gastroesophageal reflux disease) History of melanoma HTN (hypertension) Hypothyroidism Non-smoker PAWAN (obstructive sleep apnea) Post-menopausal Sleep apnea Thyroid disease Wears glasses Surgical History History of bunionectomy History of History of cholecystectomy Family History Father Hypertension Prostate cancerSon Diabetes type 1 Social History current occupational status: employed Smoking Status: Never smoker alcohol intake: never HPI lumbar spine Details: This documentation accurately reflects the service provided and the decisions made by me, Dr. Dixon Kim MD 08/08/23 1432. Part of today?s visit was documented by [ ], acting as scribe. FABY KHAN is a 62 year old F here today for preop appointment prior to 360 fusion. DOS: 08/15/23. Surgical Soap and drinks provided today. Faby noticed weakness and foot drop in the right foot and pain and numbness along the anterolateral aspect of the right leg in the late June. She then saw a spine surgeon in [facility] followed by Dr. Hartley. Both surgeons recommended L3-5 decompression and fusion. She however could not proceed with the surgery due to insurance issues. She continues to have partial weakness foot drop in the right foot but mentioned that her pain has gotten better. She has some axial low back ache along the belt line, but she had a severe episode of axial back pain around May. She has pain and numbness over the anterior thigh as well as anterolateral leg on the right side. She has numbness in bilateral big toes. Her pain and numbness in the anterior thighs bilaterally as well. She has been using a cane for the last few weeks. She reports that the symptoms started after she had a 7-hour long road trip about a month ago. She denies any obvious trauma. She denies lifting heavy objects. She is nondiabetic. Her BMI is 40.6. She denies any neck pain, hand numbness, dexterity issues. She does have balance issues which she attributes to the pain and weakness in the lower extremities. Ortho Exam General General: Yes no acute distress Neurologic: Yes alert and Yes oriented x3 Spine SPINE TESTING CERVICAL THORACIC LUMBAR Musculoskeletal Strength 0=absent - 5=normal Details: Examination of the back shows no tenderness. Neurologic evaluation of lower extremity shows grade 4 right tibialis anterior, grade 4 EHL, all the muscles are 5 of 5 strength. Straight leg raising test is negative. Upper extremity shows 5 out of 5 strength. Willy's negative. Romberg's is negative. Examination of bilateral hips show full range of painless movement. Coding Level of Care Code Off vis,est,level 3 Diagnoses Right foot drop M21.371 Spinal stenosis of lumbar region with neurogenic claudication M48.062 Assessment and Plan Assessment and Plan (1) Right foot drop: Status: Acute (2) Spinal stenosis of lumbar region with neurogenic claudication: Status: Acute Plan Since last seen by me, she has tried 1 session of physical therapy. She continues to be bothered by the place of the right foot as well as the right lower extremity radicular pain which limits her mobility. Because of her significant weakness, she wishes to proceed with surgical intervention on urgent basis. Based on my exam, it appears to the L5 dermatomal pain and weakness along with some anterior thigh pain/of L3 and L4 contribution. I explained to her that she has degenerative scoliosis with foraminal stenosis worse on the right side at L3-4 L4-5. Surgical treatment options were discussed. Anterior and posterior approach alternatives were discussed. Because of significant foraminal stenosis, facet diastases, degenerative scoliosis, I recommended surgical decompression and fusion. L3-4 and L4-5 anterior and posterior surgical fusion with indirect decompression was discussed in detail. All risks benefits and alternatives were discussed. The risks include but are not limited to infection, bleeding, injury to nerves and vessels including major vessels like IVC and aorta, persistent paresthesia, persistent pain, dural tear, need for further procedures, adjacent segment degeneration, pseudoarthrosis, hardware failure, retrograde ejaculation, paralytic ileus. She understands and agrees to the procedure. Consent signed. [facility] Medical History Anxiety Back pain BiPAP (biphasic positive airway pressure) dependence Cancer Gastric reflux GERD (gastroesophageal reflux disease) History of melanoma HTN (hypertension) Hypothyroidism Non-smoker PAWAN (obstructive sleep apnea) Post-menopausal Sleep apnea Thyroid disease Wears glasses Home Medications cetirizine 10 mg tablet (Zyrtec) 10 mg PO DAILY allergy symptoms 08/02/18 [Histo ry Last Taken Unknown] duloxetine 30 mg capsule,delayed release (Cymbalta) 60 mg PO BREAKFAST anxiety 08/02/18 [History Last Taken 08/15/23] levothyroxine 88 mcg tablet (Synthroid) 88 mcg PO DAILY hypothyroid 08/02/18 [History Last Taken 08/15/23] metoprolol succinate 25 mg tablet,extended release 24 hr (Toprol XL) 25 mg PO DAILY hypertension 08/02/18 [History Last Taken 08/15/23] omeprazole 20 mg capsule,delayed release 20 mg PO DAILY GERD 08/02/18 [History Last Taken 08/15/23] duloxetine 30 mg capsule,delayed release 30 mg PO QHS anxiety 04/25/19 [History Last Taken Unknown] acetaminophen 500 mg tablet (Tylenol Extra Strength) 1,000 mg PO BID PAIN 01/09/23 [History Last Taken Unknown] ibuprofen 400 mg tablet 400 mg PO BID pain 01/09/23 [History Last Taken Unknown] zolpidem 5 mg tablet (Ambien) 5 mg PO QHS Insomnia 01/09/23 [History Last Taken Unknown] gabapentin 300 mg capsule 300 mg PO TID PAIN 07/27/23 [History Last Taken 08/15/23] Allergy/AdvReac Type Severity Reaction Status Date / Time No Known Allergies Allergy Verified 08/15/23 07:54 Family History Father Hypertension Prostate cancer Son Diabetes type 1 Surgical History History of bunionectomy History of History of cholecystectomy Social History current occupational status: employed Smoking Status: Never smoker alcohol intake: never Vital Signs Vital Signs Vital Signs: Weight Weight: 275 lb Results Lab / Micro Data 08/08/23 15:37
[2023-08-15] MEDS: Lactated Ringers 1,000 ML 40 ML IV ×2 (08:05→18:31)
[2023-08-15] MEDS: Magnesium 1 GM over 15 mins IV (08:05)
[2023-08-15] MEDS: Acetaminophen 500 MG Tablet 1000 MG PO ×2 (08:07→21:03)
[2023-08-15 08:28] LABS: Bedside Glucose 102 mg/dL (74-106)
[2023-08-15] MEDS: Cefazolin 3 GM in 0.9% Normal Saline (100mL Bag) 100 ML IV ×2 (10:15→20:28)
--- NOTE | 2023-08-15 10:15 | RAD_ITS ---
PROCEDURE: Intraoperative fluoroscopy. DATE OF EXAMINATION: August 15, 2023. INDICATION: Female, 62 years old. Anterior and posterior fusion at the L3-L4 and L4-L5 levels. FLUOROSCOPY TIME (if supplied): (62.1 seconds) minutes/seconds. 63.49 mGy RAD/Lumbar Spine 2 or 3 Views IMPRESSION: Intraoperative imaging provided for L3-L4 and L4-L5 spinal fusion. Electronically Signed: Pa Foley MD at 9:31 EST ,
[2023-08-15] MEDS: Heparin 10,000 UNITS/10 ML Vial 10000 UNITS (10:45)
[2023-08-15] MEDS: Ropivacaine 0.5% 30 ML Vial (15:14)
--- NOTE | 2023-08-15 15:20 | OP.PCM_ITS ---
Report of Operation Date of Procedure: 08/15/23 Pre-Operative Diagnosis: L3-5 disc degeneration with stenosis Post-Operative Diagnosis: Same Surgery/Procedure Performed:: L3-5 oblique lumbar interbody fusion Description of Surgical Findings::
--- NOTE | 2023-08-15 15:20 | PCM.OPRPT ---
Report of Operation Date of Procedure: 08/15/23 Description of Surgical Findings:: Preoperative diagnosis: L4-5 spondylolisthesis, L3-5 disc degeneration with foraminal stenosis, degenerative scoliosis Postoperative diagnosis: Same Name of procedures L3-5 oblique lumbar interbody fusion (OLIF), minimally invasive left sided approach, lateral decubitus: ? L3-4 anterolateral spinal fusion 58599 ? L4-5 anterolateral fusion 23479/51 ? L3-4 insertion of cage 79132 ? L4-5 insertion of cage 00945/51 ? Bone graft aspirate vertebral body ? Allograft cancellous chips Attending Surgeon: Dr. Dixon Armando. surgeon: Dr. Arturo Carlson, ANDRES Mast Estimated blood loss: 150 mL Anesthesia: General Complications: None Indications: Patient is a 62year-old pleasant lady who has had a long history of low back pain and right worse than left lower extremity radiation and partial right foot drop. Xrays & MRI revealed L3-5 disc degeneration with stenosis, L4-5 spondylolisthesis, degenerative scoliosis. After undergoing a prolonged period of nonoperative treatment, he elected to undergo surgical decompression & fusion due to concern of the right partial foot drop. All surgical options were discussed with the patient including anterior and posterior approaches. All risks and benefits associated with the procedure were explained to the patient. The risks include but are not limited to infection, bleeding, injury to nerves and vessels including major vessels like IVC and aorta, persistent paresthesia, persistent pain, dural tear, need for further procedures, adjacent segment degeneration, pseudoarthrosis, hardware failure, retrograde ejaculation, paralytic ileus, etc. Procedure: The patient was identified in the preoperative holding suite using Unique patient identifiers. Skin was marked, consent was reviewed, and all questions were answered. The patient was then brought back to the operative room. A surgical timeout was performed to make sure correct procedure was being done on the correct patient and all operative room staff were on the same page. General endotracheal anesthesia was then given to the patient. Spear catheter was inserted. The patient was then carefully positioned in right lateral decubitus position with the left side up on a regular OR table. Axillary roll was placed and all bony prominences were well- padded. Hip positioners were placed in the posterior buttocks and anterior sternal area. The surgical area was prepped and draped in usual fashion. Preoperative antibiotic was injected IV as preoperative antibiotic. A final timeout was then again done just before starting the procedure. A 2 inch incision oblique was taken in the right lower quadrant of the abdomen 2 fingerbreadths away from the iliac crest and the lower ribs. Sharp dissection with Bovie was carried out up to the fascia covering the external oblique. The external oblique, internal oblique and transversus abdominis muscles were split along the muscle fibers and retroperitoneal space was entered. Sponge sticks were utilized to move the bowel and peritoneum [id number]-qw-lyd-way and psoas muscle was exposed staying within the retroperitoneal plane. Ambiq Micro retractor system was positioned and the retractor blade was applied onto the psoas. The interval between psoas and aorta was developed and appropriate retractors were placed. Once adequate interval was cleared, a disc space was identified and a marker x-ray was taken. This identified the L3-4 disc level. Annulotomy was done with a long handled knife. Pituitary was used to remove disc material. Curettes were used to prepare the endplates. Disc space spreaders were utilized to distract and increase the disc height. Near complete discectomy was performed. Trials of serially increasing sizes were used. A Jamshidi needle was used to aspirate bone marrow from the vertebral body and this aspirate was mixed with the allograft bone chips. A Depuy [place] cage of size of the 18 x 50 x 14 mm with 15 degrees lordosis was packed with corticocancellous allograft bone chips mixed with bone marrow aspirate. This was inserted into the L3-4 disc space. The retractors were then repositioned to expose the L4-5 disc and the procedure was repeated with complete discectomy and endplate preparation. Smaller disc distractors were also used to bluntly perform a contralateral annulotomy at the both levels. Cage size was 18 x 50 x 14 mm at L4-5. AP and lateral C-arm pictures were taken to confirm good position of the cage. Some bone chips were also packed around the cages. Screw with washer was placed into the lower L4 body with a washer partially covering the cage at L4-5. Hemostasis was confirmed. The retractor blades were removed. Closure was done in layers with a continuous strand of # 1 Vicryl in all muscle layers. 2-0 Vicryl was used for subcutaneous tissue and 4-0 for Monocryl for the skin. Steri-Strips were applied and 4 x 4 gauze and Tegaderm were applied. Drains: None Admit VTE Documentation VTE Present on Admission: Yes VTE Mechan Device Prophylaxis: SCD's Reason prophylaxis not ordered:: Treatment Not Indicated Procedures Musculoskeletal 20xxx-[id number]: Other Procedure See Report
--- NOTE | 2023-08-15 15:39 | PCM.OPRPT ---
Report of Operation Description of Surgical Findings:: Preoperative diagnosis: L4-5 spondylolisthesis, L3-5 disc degeneration with foraminal stenosis, degenerative scoliosis Postoperative diagnosis: Same Name of procedures L3-5 posterior percutaneous pedicle screw instrumentation, prone: L3-4 posterior spinal fusion L3-4 posterior pedicle screw instrumentation L4-5 posterior pedicle screw instrumentation L4-5 posterior fusion Attending Surgeon: Dr. Dixon Armando. surgeon: Dr. Arturo Carlson, ANDRES Mast Estimated blood loss: 150 mL Anesthesia: General Complications: None Procedure: After the anterior portion of the surgery, the patient was then turned supine. The patient was then transferred to Harry table in prone position. Back was prepped and draped in usual fashion. C-arm AP view was then taken. C-arm was positioned in a way that L3 was centralized and superior endplate of was parallel to the beam. Spinous process was centered between the pedicles. Midline was marked with skin marker and lateral borders of the pedicles were also marked. Skin marker was also utilized to ramiro transversely across the middle of the pedicles at L3. 2 transverse paramedian incisions of 1 inch were placed. The fascia was incised vertically. Finger dissection was utilized to palpate the transverse process and facet joint. Viper Prime screws with towers were inserted and docked onto the transverse processes. This was then slowly moved medially to reach the superior articular process of L3. This was then confirmed on C-arm and then a mallet was utilized to drive the trocar into the pedicle going up to the medial wall of the pedicle on AP view. This was performed both sides. C-arm lateral view confirmed that the tip of the trocar was in the vertebral body, and the screw was advanced into the pedicle and vertebral body. This was repeated similarly at L4 and L5. Screw sizes were 7 x 50 mm at both levels, on both sides. 75 mm precontoured titanium 5.5 mm lordotic leyda on Both sides were then passed through the screw extensions and reduced down to the screws with the help of [employer] instrumentation system on both sides. AP and lateral view of the C-arm showed good positioning of the screws and cages. Final tightening with the torque screwdriver was then completed. Rodman was utilized to roughen the facet joint at L3-5 on the right side. Cancellous allograft bone chips mixed with bone marrow aspirate were then placed over this decorticated area. Hemostasis was achieved. Closure was done in layers with 0 Vicryls for the fascia, 2-0 Vicryls for the subcutaneous tissue, and Monocryl for the skin. Dermabond was applied. Dressings were applied covered with Tegaderm. The patient was then turned supine onto a hospital bed. The patient was extubated and taken to PACU in stable condition. The patient tolerated the procedure well and no complications occurred. [employer] [place] cage & Viper Prime minimally invasive pedicle screw instrumentation system was utilized in this case. No dural tear was identified intraoperatively. I was present for the entirety of the case and performed the surgery. Procedures Musculoskeletal [id number]: Other Procedure See Report
--- NOTE | 2023-08-15 16:52 | SUR.PHASEI ---
CPS SUMMONED TO BEDSIDE TO START HOME BIPAP, PT NOW VERY LETHARGIC, C SIRCA TO BEDSIDE AND ORAL AIRWAY PLACED, PT NOT RESPONDING AND STILL OBSTRUCTING AIRWAY UNLESS MANUAL JAW THRUST, RETAINING CO2 PER CAPNO - CPS STARTING THERE OWN BIPAP
--- NOTE | 2023-08-15 17:35 | NURSING ---
NASAL AND ORAL AIRWAY REMOVED TO APPLY BIPAP
--- NOTE | 2023-08-15 17:57 | PN.HOSP_ITS ---
Subjective Subjective 62-year-old female presents to the hospital for elective lumbar fusion of L3-L5 for L4-5 spondylolisthesis with foraminal stenosis and degenerative scoliosis. Postoperatively she had an increase in her CO2, she does chronically wear CPAP for obstructive sleep apnea. Reviewing anesthesia's records it does appear that she may have awoken a little too soon in the OR and so she was given 20 mg of propofol about 20 minutes prior to arriving in PACU. This BiPAP requirement is likely related to anesthesia. Objective Data Objective Data Vital Signs: Vital Signs Temp Pulse Resp BP Pulse Ox O2 Del Method O2 Flow Rate 98.3 F 83 18 163/96 H 98 Bi-pap 10 08/15/23 15:42 08/15/23 17:45 08/15/23 17:45 08/15/23 17:45 08/15/23 17:45 08/15/23 17:45 08/15/23 17:00 FiO2 50 08/15/23 17:45 Oxygen Flow Rate (L/min) 10 Oxygen Delivery Method Bi-pap Weight: 275 lb 9.245 oz Body Mass Index (BMI) 40.6 Intake & Output: Intake and Output for Last 24 Hours 08/14/23 08/15/23 08/16/23 03:59 03:59 03:59 Output Total 800 / 800 Balance -800 / -800 Lab / Micro Data 08/08/23 15:37 Labs: Laboratory Results - last 24 hr 08/15/23 08:00: POC Glucose 102 Micro: Microbiology 08/08/23 15:37 Swab (Method) Nasal Screen MRSA/MSSA - Final Physical Exam Narrative General: Drowsy but alert to questions, cooperative, No apparent distress HEENT: Atraumatic, PERRLA, EOMI, Normocephalic Oral: Moist Mucosa Neck: Supple, No JVD Lungs: Diminished, Normal air movement, No rhonchi, No wheeze, No rales, remains on BiPAP Cardiovascular: Regular rate, Regular Rhythm, Normal S1, Normal S2, No murmurs Abdomen: Soft, Non Tender, Non-Distended, No Hepato-splenomegaly Extremities: No edema, Capillary Refill Less than 3 Seconds Skin: Dressing CDI Musculoskeletal: Having back pain Neurological: Moves all extremities, sensory exam limited due to drowsiness Psych/Mental Status: Drowsy Assessment & Plan Assessment/Plan (1) Spinal stenosis of lumbar region with neurogenic claudication: (2) S/P lumbar fusion: PLAN: Plan 1. Status post lumbar fusion per foraminal stenosis and L4-5 spondylolis thesis/postoperative respiratory failure from anesthesia ? PT/OT ? Pain management from primary ? DVT prophylaxis per primary ? She does wear BiPAP at home so we will continue here postoperatively we will limit pain medications until she is more alert and the anesthesia has worn off 2. Hypertension ? Blood pressures are stable ? Continue with her home metoprolol ? We will monitor make adjustments as necessary 3. Hypothyroidism ? Stable ? Continue with Synthroid 4. Anxiety/depression ? Stable ? Continue with Cymbalta 5. GERD ? Stable ? Continue with PPI DVT: SCDs Charges/Coding Visit Charges Office Visits / Consults: 71023 OV L3 New
--- NOTE | 2023-08-15 19:45 | SUR.PHASEI ---
AFTER OXYGEN TRIAL ON NC AT 2L I GAVE HER MORPHINE 4MG IV FOR PAIN LEVEL OF 6/10 N HER BACK.
[2023-08-15] MEDS: Morphine 2 MG/ML Syringe IV ×2 (20:28→23:16)
[2023-08-15] MEDS: Gabapentin 300 MG Capsule PO (21:03)
[2023-08-15] MEDS: oxyCODONE 5 MG Tablet PO (21:03)
[2023-08-15] MEDS: Ibuprofen 400 MG Tablet PO (22:38)
[2023-08-15] MEDS: Zolpidem Tartrate 5 MG Tablet PO (22:38)
[2023-08-15] MEDS: Senna/Docusate Sodium 1 Tablet 2 TABLET PO (22:38)
[2023-08-16 00:15] VITALS: BP 120/70; PULSE 75; RESP 18; TEMP 36.6; O2SAT 93
[2023-08-16] MEDS: Cefazolin 3 GM in 0.9% Normal Saline (100mL Bag) 100 ML IV (03:38)
[2023-08-16 04:41] VITALS: BP 115/58; PULSE 68; RESP 18; TEMP 36.7; O2SAT 93
[2023-08-16] MEDS: Levothyroxine 88 MCG Tablet PO (04:45)
[2023-08-16] MEDS: Acetaminophen 500 MG Tablet 1000 MG PO ×3 (04:45→20:57)
[2023-08-16] MEDS: Gabapentin 300 MG Capsule PO ×3 (04:45→20:56)
[2023-08-16] MEDS: oxyCODONE 5 MG Tablet PO ×4 (04:45→18:53)
[2023-08-16 07:54] LABS: Hematocrit 34.9 % (37-47); Mean Corp Hgb Conc 31.5 g/dL (32-36); Mean Corpuscular Hgb 28.4 pg (27.0-32.0); Mean Corpuscular Volume 89.9 fL (81-99); Mean Platelet Vol. 10.3 fl (6.2-12.0); Platelet Count 250 K/mm3 (150-450); RBC Distribution Width CV 14.6 % (11.6-14.6); Red Blood Count 3.88 M/mm3 (4.2-5.4); White Blood Count 11.2 K/mm3 (4.4-11.0)
[2023-08-16 08:23] VITALS: BP 118/56; PULSE 67; RESP 18; TEMP 37.2; O2SAT 96
--- NOTE | 2023-08-16 08:25 | PCM.PN.ORT ---
Subjective Subjective Postop day 1 s/p L3-5 fusion. Alert and oriented this morning. O2 sats 100 without need for any oxygen. She was apparently sedated until at least 7:30 PM yesterday evening after surgery and use of BiPAP for sleep apnea. Resting pain 3 out of 10. She says that she is walked to the bathroom with walker. Straight cath x1. Awaiting spontaneous voiding. No flatus yet. Objective Data Objective Data Vital Signs: Vital Signs Temp Pulse Resp BP Pulse Ox O2 Del Method O2 Flow Rate 99 F 67 18 118/56 L 96 Room Air 2 08/16/23 08:23 08/16/23 08:23 08/16/23 08:23 08/16/23 08:23 08/16/23 08:23 08/16/23 08:23 08/16/23 04:41 FiO2 25 08/15/23 19:30 Oxygen Flow Rate (L/min) 2 Oxygen Delivery Method Room Air Weight: 275 lb 9.245 oz Body Mass Index (BMI) 40.6 Intake & Output: Intake and Output for Last 24 Hours 08/14/23 08/15/23 08/16/23 23:59 23:59 23:59 Intake Total 1507.33 / 1507.33 115 / 115 Output Total 825 / 825 800 / 800 Balance 682.33 / 682.33 -685 / -685 Lab / Micro Data 08/16/23 06:50 08/16/23 06:50 Labs: Laboratory Results - last 24 hr 08/15/23 08:00: POC Glucose 102 08/16/23 06:50: WBC 11.2 H, RBC 3.88 L, Hgb 11.0 L, Hct 34.9 L, MCV 89.9, MCH 28.4, MCHC 31.5 L, RDW Std Deviation 48.0 H, RDW Coeff of Petra 14.6, Plt Count 250, MPV 10.3 Micro: Microbiology 08/08/23 15:37 Swab (Method) Nasal Screen MRSA/MSSA - Final Physical Exam Narrative Dressings?CDI. Mild staining of right posterior lumbar dressing. Neuro intact. Baseline right partial foot drop 4+. Assessment & Plan Assessment/Plan (1) S/P lumbar fusion: PLAN: Plan - PT OT eval today for discharge planning. -Continue clear liquid diet until passes flatus. Then can advance to regular diet. -Encouraged incentive spirometry -Appreciate hospitalist comanagement. -Will obtain upright x-rays today -Continue void trial. -Discharge pending PT OT clearance and diet advancement. Potentially tomorrow.
[2023-08-16 08:28] LABS: Anion Gap 4 (5-15); BUN 16 mg/dL (7-18); BUN/Creat Ratio 20.9 RATIO (10-20); Calcium,Total 8.2 mg/dL (8.5-10.1); Chloride 102 mmol/L (98-107); Creatinine, Serum 0.77 mg/dL (0.55-1.02); EST Glomerular Filtration Rate 81 mL/min (>60); Est Glom Filt Rate - Afr Amer 98 mL/min (>60); Estimated Creatinine Clearance 79.17 ml/min; Glucose 135 mg/dL (74-106); Potassium 3.8 mmol/L (3.5-5.1); Sodium Level 136 mmol/L (136-145)
[2023-08-16] MEDS: DULoxetine Hcl 60 MG Capsule PO (08:43)
--- NOTE | 2023-08-16 10:06 | RAD_ITS ---
STUDY: X-RAY - LUMBAR SPINE REASON FOR EXAM: Female, 62 years old. s/p L3-5 fusion -- pls do Upright AP, Lat on postop day 1 TECHNIQUE: 2 view(s) of the lumbar spine were obtained. COMPARISON: Comparison is made with prior study dated May 09, 2023. FINDINGS: The patient is status post L3-L4 and L4-L5 interpedicular screw and leyda fixation with prosthetic disc placement. RAD/Lumbar Spine 2 or 3 Views IMPRESSION: Status post L3-L4 and L4-L5 level fusion with prosthetic disc placement. Electronically Signed: Pa Foley MD at 10:13 EST ,
[2023-08-16] MEDS: Ibuprofen 400 MG Tablet PO ×2 (10:47→20:56)
[2023-08-16] MEDS: Loratadine 10 MG Tablet PO (10:47)
[2023-08-16 10:48] VITALS: BP 118/56; PULSE 67
[2023-08-16] MEDS: Senna/Docusate Sodium 1 Tablet 2 TABLET PO ×2 (10:48→20:57)
[2023-08-16] MEDS: Metoprolol(XL)Succ 25 MG Tablet PO (10:48)
[2023-08-16] MEDS: Pantoprazole Sodium 20 MG Tablet PO (10:51)
--- NOTE | 2023-08-16 11:05 | CASEMGMT ---
JEANNETTE WILSON Assessment: Face to Face with pt for initial transition planning/care coordination assessment. JEANNETTE WILSON introduced self and role at [facility], pt voices understanding and consents to assessment. Pt's is also present in the room. Pt is A&O x4 and answers all questions appropriately at this time. Care providers, pharmacy, and demographics verified/updated. Admitting Dx: Lumbar Fusion PCP: Todd Pavonk) Specialists: Julio (Ortho surgery), Partha (Pulmonary) Preferred Pharmacy: [facility] Insurance: [employer] [facility] Prescription Benefit: yes LNOK: Ash Shah () Living Will/HCPOA: No and No. Pt. declines to receive information on ADs. Pt. informed that it is a free service offered through [facility] if she desires. Living Arrangements: Pt lives with her in a 2 story home that is not SU, but can be converted to a FFSU if needed. 5 steps w/railing to eneter and 13 steps w/railing to go to second floor. Pt. states she will be recovering at her friend, Renzo, apartment that is a [facility] (pt. states Iris is a critical care nurse). Prior to this admission pt. states she did well ambulating prior to this admission. Pt. states she is I in all ADLs/IADLs. Transportation: Self and . DME: shower chair, raised toilet seat (plans to order one), cane, crutches, grab bars (will install these), walker, BIPAP, pulse ox, Web Content Developer. Pt. denies needs for additional DME at this time. HHC/SNF: Denies any previous SNF or HHC. Pt states no concerns with going home at time of dc. Pt states no further concerns/needs. CM to follow. Advised pt to ask CM if any further question/concerns/needs arise, voices understanding. Pt Goal: Discharge home to her friend's apartment for recovery, and then transition back to her own home. Plan: Discharge home to friend Iris's apartment for recovery and then transition back to her house with support of her and follow-up plans in place. Follow PT/OT and diet advancement.
--- NOTE | 2023-08-16 13:11 | PN.HOSP_ITS ---
Reason for Visit Reason for Visit: Diagnoses Spinal stenosis, lumbar region with neurogenic claudication (08/15/23) Encounter for other preprocedural examination (08/15/23) Arthrodesis status (08/15/23) Subjective Subjective Patient was seen and examined today, she denies any fevers or chills, patient had questions about her gabapentin, I told her probably not be of any use increasing the dosage for strictly back pain. She understood this. Objective Data Objective Data Vital Signs: Vital Signs Temp Pulse Resp BP Pulse Ox O2 Del Method O2 Flow Rate 99 F 67 18 118/56 L 96 Room Air 2 08/16/23 08:23 08/16/23 10:48 08/16/23 08:23 08/16/23 10:48 08/16/23 08:23 08/16/23 08:23 08/16/23 04:41 FiO2 25 08/15/23 19:30 Oxygen Flow Rate (L/min) 2 Oxygen Delivery Method Room Air Weight: 125 kg Body Mass Index (BMI) 40.6 Intake & Output: Intake and Output for Last 24 Hours 08/14/23 08/15/23 08/16/23 23:59 23:59 23:59 Intake Total 1507.33 / 1507.33 115 / 115 Output Total 825 / 825 800 / 800 Balance 682.33 / 682.33 -685 / -685 Lab / Micro Data 08/16/23 06:50 08/16/23 06:50 Labs: Laboratory Results - last 24 hr 08/16/23 06:50: WBC 11.2 H, RBC 3.88 L, Hgb 11.0 L, Hct 34.9 L, MCV 89.9, MCH 28.4, MCHC 31.5 L, RDW Std Deviation 48.0 H, RDW Coeff of Petra 14.6, Plt Count 25 0, MPV 10.3, Sodium 136, Potassium 3.8, Chloride 102, Carbon Dioxide 30.0, Anion Gap 4 L, BUN 16, Creatinine 0.77, Estim Creat Clear Calc 79.17, Est GFR (MDRD) Af Amer 98, Est GFR (MDRD) Non-Af 81, BUN/Creatinine Ratio 20.9 H, Glucose 135 H , Calcium 8.2 L Micro: Microbiology 08/08/23 15:37 Swab (Method) Nasal Screen MRSA/MSSA - Final Radiography Diagnostic Testing: Radiology Impression Lumbar Spine X-Ray 08/15/23 10:15 IMPRESSION: Intraoperative imaging provided for L3-L4 and L4-L5 spinal fusion. Electronically Signed: Pa Foley MD at 9:31 EST , Lumbar Spine X-Ray 08/16/23 10:06 IMPRESSION: Status post L3-L4 and L4-L5 level fusion with prosthetic disc placement. Electronically Signed: Pa Foley MD at 10:13 EST , Physical Exam Const alert, oriented x3, no apparent distress and healthy appearing General Appearance: cooperative, well kempt and well developed Orientation / Consciousness: awake, oriented to person, oriented to place and oriented to time HEENT normocephalic and moist oral mucous membranes Eyes PERRL, EOMs intact bilaterally and conjunctivae normal Neck supple, no JVD, thyroid normal and no carotid bruits General: trachea midline Resp normal respiratory effort, no retractions, no use of accessory muscles and clear to auscultation bilaterally Auscultation: Negative for rales, rhonchi or wheezes Cardio regular rate, regular rhythm, S1 normal heart sound, S2 normal heart sound, no murmurs, no rub and no gallops GI normal to inspection, nondistended, normoactive bowel sounds, soft to palpation, non-tender and non-distended Extremity no clubbing, cyanosis or edema Skin no rashes or lesions noted General Skin Exam: no breakdown Neuro oriented x3, CN's II-XII intact bilaterally, moves all extremities, no focal motor deficits and no sensory deficits noted Sensorium / Orientation: awake, alert, oriented to person, oriented to place and oriented to time Speech: speech normal Psych affect normal Assessment & Plan Assessment/Plan (1) HTN (hypertension): PLAN: Plan 1. Essential hypertension-patient will remain on her present medications, blood pressure will be monitored, adjustments will be made in her medications if needed #2 hypothyroidism-patient will remain on Synthroid #3 obstructive sleep apnea-patient chronically wears CPAP when sleeping, she will do so in the hospital #4 chronic anxiety/depression-patient is on Cymbalta here #5 status post lumbar fusion L3-5 secondary to L4-5 spondylolisthesis and L3-5 disc degeneration with foraminal stenosis and degenerative scoliosis-postop day #1, PT and OT are seeing the patient, spinal surgery is participating in her care Total clinical time spent by myself addressing the patient's medical issues, reviewing all of her data, and collaborating with the patient's care team: 25 minutes Charges/Coding Visit Charges Inpatient E&M: 59468 Subs Hosp L1
--- NOTE | 2023-08-16 14:13 | CHAPLAIN ---
Type of Pastoral Visit _x__ Initial Visit ___ Follow-up Visit ___ On-call Visit ___ General Patient Visit ___ Spiritual Assessment ___ Family Conference ___ Bereavement ___ Rapid Response ___ Code Blue ___ Other (describe below) Pastoral Care Referral From _x__ Patient ___ Family ___ Nurse ___ Physician ___ Experimental Welder ___ Healthcare Economics Consultant ___ Other (describe below) Sacrament/Intervention _x__ Active listening ___ Anointing ___ Shinto ___ Bereavement ___ Communion ___ Lin exploration ___ ___ Life review _x__ Prayer ___ Reconciliation ___ Sacrament of Sick ___ Supportive presence ___ Wedding ___ Other (describe below) Pastoral Comments 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
[2023-08-16 16:19] VITALS: BP 111/52; PULSE 69; RESP 16; TEMP 37.1; O2SAT 96
[2023-08-16 20:50] VITALS: BP 152/70; PULSE 67; RESP 18; TEMP 36.8; O2SAT 93
[2023-08-16] MEDS: Zolpidem Tartrate 5 MG Tablet PO (20:56)
[2023-08-16] MEDS: Morphine 2 MG/ML Syringe IV (20:57)
[2023-08-16] MEDS: 0.9% Saline Lock 10 ML Syringe IV (20:57)
--- NOTE | 2023-08-16 22:37 | CPS ---
[2233] Pt. on home BiPAP tonight. pressure settings with no supplemental oxygen. Pt.'s oxygenation is appropriate at this time with no signs of respiratory distress or discomfort.
[2023-08-17 02:50] VITALS: BP 140/68; PULSE 66; RESP 18; TEMP 36.7; O2SAT 93
[2023-08-17] MEDS: oxyCODONE 5 MG Tablet PO ×3 (03:15→12:54)
[2023-08-17] MEDS: Gabapentin 300 MG Capsule PO ×2 (06:04→13:55)
[2023-08-17] MEDS: Levothyroxine 88 MCG Tablet PO (06:04)
[2023-08-17] MEDS: Acetaminophen 500 MG Tablet 1000 MG PO ×2 (06:05→13:55)
[2023-08-17] MEDS: Morphine 2 MG/ML Syringe IV (06:47)
[2023-08-17] MEDS: 0.9% Saline Lock 10 ML Syringe IV (06:47)
[2023-08-17 07:17] VITALS: O2SAT 96
[2023-08-17] MEDS: Ibuprofen 400 MG Tablet PO (08:10)
[2023-08-17] MEDS: Loratadine 10 MG Tablet PO (08:10)
[2023-08-17] MEDS: Senna/Docusate Sodium 1 Tablet 2 TABLET PO (08:10)
[2023-08-17] MEDS: DULoxetine Hcl 60 MG Capsule PO (08:10)
[2023-08-17 08:11] VITALS: PULSE 75
[2023-08-17] MEDS: Metoprolol(XL)Succ 25 MG Tablet PO (08:11)
[2023-08-17] MEDS: Pantoprazole Sodium 20 MG Tablet PO (08:16)
[2023-08-17 09:18] VITALS: BP 145/73; PULSE 75; RESP 16; TEMP 37.3; O2SAT 94
[2023-08-17 11:30] VITALS: BP 136/64; PULSE 78; RESP 16; TEMP 37.3; O2SAT 92
--- NOTE | 2023-08-17 11:30 | CASEMGMT ---
JEANNETTE CM into pt room, pt states she feels safe to go home. She states this morning she felt worse and thought maybe she should go to the rehab unit but now has improved greatly. Pt denies any homegoing needs.
[2023-08-17] MEDS: Methocarbamol 500 MG Tablet 1000 MG PO (12:10)
--- NOTE | 2023-08-17 12:45 | PCM.PN.ORT ---
Subjective Subjective Postop day 2 status post L3-5 fusion. Doing well had some pain overnight which improved. Has been passing flatus. Advised to regular diet. Tolerated 1 solid meal. Cleared PT OT and did stairs today. Objective Data Objective Data Vital Signs: Vital Signs Temp Pulse Resp BP Pulse Ox O2 Del Method O2 Flow Rate 99.1 F 78 16 136/64 H 92 Room Air 2 08/17/23 11:30 08/17/23 11:30 08/17/23 11:30 08/17/23 11:30 08/17/23 11:30 08/17/23 11:30 08/16/23 04:41 FiO2 25 08/15/23 19:30 Oxygen Flow Rate (L/min) 2 Oxygen Delivery Method Room Air Weight: 275 lb 9.245 oz Body Mass Index (BMI) 40.6 Intake & Output: Intake and Output for Last 24 Hours 08/15/23 08/16/23 08/17/23 23:59 23:59 23:59 Intake Total 1507.33 / 1507.33 115 / 765 950 / 950 Output Total 825 / 825 2700 / 3600 900 / 900 Balance 682.33 / 682.33 -2585 / -2835 50 / 50 Lab / Micro Data 08/16/23 06:50 08/16/23 06:50 Micro: Microbiology 08/08/23 15:37 Swab (Method) Nasal Screen MRSA/MSSA - Final Assessment & Plan Assessment/Plan (1) S/P lumbar fusion: PLAN: Plan Explained to her that she will have good days and bad days with pain over the next few weeks. She should continue with her mobility improvement with time. She will follow-up with us in 2 weeks. She will continue with a walker. Encouraged incentive spirometry. We will start outpatient physical therapy after her 2-week follow-up. Patient was in agreement.
--- NOTE | 2023-08-17 13:26 | PHA.DC_ITS ---
Pharmacy [facility] has performed discharge medication reconciliation and counseling for this patient. The patient's discharge medication list was reviewed for discrepancies and discrepancies were resolved. The patient was counseled on the following discharge medications and changes in medications for homegoing were reviewed. The Reason for Use, instructions for use, and potential side effects were reviewed for all new medications. The patient's questions regarding all of their medications were answered. 1. Methocarbamol 1000 mg PO 4 x per day x 7 days 2. Oxycodone 2.5-5 mg Q6H PRN pain 3. Senna/docusate 2 tabs PO BID PRN constipation The patient was able to verbally demonstrate an understanding of their discharge medications. The patient was counselled by vice president pharmacy Haim. Medications at Discharge Home Medications cetirizine 10 mg tablet (Zyrtec) 10 mg PO DAILY allergy symptoms 08/02/18 duloxetine 30 mg capsule,delayed release (Cymbalta) 60 mg PO BREAKFAST anxiety 08/02/18 levothyroxine 88 mcg tablet (Synthroid) 88 mcg PO DAILY hypothyroid 08/02/18 metoprolol succinate 25 mg tablet,extended release 24 hr (Toprol XL) 25 mg PO DAILY hypertension 08/02/18 omeprazole 20 mg capsule,delayed release 20 mg PO DAILY GERD 08/02/18 duloxetine 30 mg capsule,delayed release 30 mg PO QHS anxiety 04/25/19 acetaminophen 500 mg tablet (Tylenol Extra Strength) 1,000 mg PO BID PAIN 01/09/23 ibuprofen 400 mg tablet 400 mg PO BID pain 01/09/23 zolpidem 5 mg tablet (Ambien) 5 mg PO QHS Insomnia 01/09/23 gabapentin 300 mg capsule 300 mg PO TID PAIN 07/27/23 methocarbamol 500 mg tablet 1,000 mg (2 x 500 mg) PO 4X/DAY 7 days #56 tabs 08/17/23 nut.tx.comp. immune systm,reg 0.08 gram-1.4 kcal/mL oral liquid (Ensure Surgery) 237 ml PO TIDCM 3 days #3,555 mL 08/17/23 oxycodone 5 mg tablet 2.5 - 5 mg (0.5 - 1 x 5 mg) PO Q6H PRN pain 2 weeks #56 tabs 08/17/23 sennosides 8.6 mg-docusate sodium 50 mg tablet (Stool Softener-Stimulant Laxative) 2 tab PO BID PRN constipation 7 days #30 tabs 08/17/23
== END 2023-08-17 14:59 | disposition home or self-care (01) | DRG 459 ==
LOC: ACINP 07:37 → MS3 08-16 07:20
PROVIDERS: Admitting Provider Orthopaedic Surgery Orthopaedic Surgery of the Spine; PCP Family Medicine; Referring Provider Orthopaedic Surgery Orthopaedic Surgery of the Spine; Visit Provider Orthopaedic Surgery Orthopaedic Surgery of the Spine
PROC: 0SG00A0 Fusion of Lumbar Vertebral Joint with Interbody Fusion Device, Anterior Approach, Anterior Column, Open Approach (ICD-10-PCS; principal; 2023-08-15 09:00)
DX: M48.062 Spinal stenosis, lumbar region with neurogenic claudication (principal); J95.821 Acute postprocedural respiratory failure; Z68.41 Body mass index [BMI] 40.0-44.9, adult; E66.01 Morbid (severe) obesity due to excess calories; I10 Essential (primary) hypertension; E03.9 Hypothyroidism, unspecified; F32.A Depression, unspecified; K21.9 Gastro-esophageal reflux disease without esophagitis; M41.86 Other forms of scoliosis, lumbar region; M43.16 Spondylolisthesis, lumbar region; G47.33 Obstructive sleep apnea (adult) (pediatric); M51.16 Intervertebral disc disorders with radiculopathy, lumbar region; F41.9 Anxiety disorder, unspecified; M21.371 Foot drop, right foot; Z99.89 Dependence on other enabling machines and devices
CPT/HCPCS: 36415; 72100; 76000; 80048; 82962; 83735; 85025; 85027; 86703; 86706; 86708; 86803; 86850; 86900; 86901; 87077; 87081; 94002; 94668; 94762; 97116; 97162; 97166; 97530; 97535; C1713; J7120; A4216; J2405; J3475

== ENCOUNTER 2023-11-02 10:00 | Outpatient (RCR) | payer OTHER, SELFPAY ==
--- NOTE | 2023-07-30 12:59 | HP.PTEVAL_ITS ---
Patient's Visit Information Visit Information Visit Information: CHARLES KHAN is a 62 year old F referred to Physical Therapy by Alyssa Newman MD with a diagnosis of LUMBAR RADICULOPATHY. Date of Evaluation: 07/30/23 Physical Therapist: Bety Dill, PT, Cert MDT Visit Plan Frequency: 2-3x /Week Duration: 4-6 Weeks Plan: *FOCUS ON CORE AND LE STRENGTHENING. GAIT TRAINING (SAFETY FOR R FOOT DROP). POSTURE CORRECTION/STRENGTHENING, INSTRUCTION IN APPROPRIATE BODY MECHANICS AND ACTIVITY MODIFICATIONS. DLS WITH A NEUTRAL SPINE ONLY. ROSCOE LE ROM, STRETCHING (INCREASE AND MAINTAIN R CALF ROM) AND STRENGTHENING. HEP INSTRUCTION. CONSIDER AQUATIC THERAPY. 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 [facility]. STANDING FOR 8 HR SHIFTS. 24 HOURS A WK. CURRENTLY OFF WORK FOR THIS. OFF WORK SINCE 06/25/23. NO TENTATIVE RTW DATE AT THIS TIME. Disability: NO Present symptoms: NO LOW BACK PAIN. ROSCOE LE SYMPTOMS. INTERMITTENT ROSCOE THIGH PAIN FRONT AND BACK. CONSTANT RIGHT LATERAL LOWER LEG NUMBNESS. CONSTANT ROSCOE TOE NUMBNESS - ALL OF THE TOES ROSCOE. ROSCOE LE WEAKNESS R > LEFT AND SOME R FOOT DROP. Present since: JUN 25 2023 Pain Scale: WORST 5/10 (IN THE LAST 2 WKS), LEAST 0/10 Currently: 0/10 Is it getting better, worse or staying the same: IMPROVING Commenced as a result of: NO APPARENT REASON Symptoms at onset: PAIN IN THIGHS. Worse: CAN ONLY BE ON FEET FOR ABOUT AN HOUR DUE TO PAIN OR FATIGUE. LIFTING ANYTHING MORE THAN 10 LBS. STAIRS. Better: SITTING DOWN OR LYING DOWN USUALLY TAKES CARE OF THE PAIN. IF NOT, ADVIL OR EXTRA STRENGTH TYLONOL. Disturbed sleep: NO Previous history/Previous treatment: UNREMARKABLE. NO BACK SURGERY. NO BACK INJECTIONS. NO LUMBAR CHIROPRACTIC HISTORY. Treatment this episode: GABAPENTIN - WITH BENEFIT AND CURRENTLY STILL ON IT. MEDROL AMAURY INITIAL WITH POSSIBLY SOME BENEFIT. CONSULTS: [facility] ED, DR NEWMAN PCP X 2, DR. BENITEZ (RECOMMENEDED DR. MYERS BUT HAS NOT SEEN HIM YET), DR. ALEGRIA (SURGERY RECOMMENDED AND DATE SET FOR AUG 07 2023 BUT PATIENT CANCELLED), DR. CORTEZ (SURGERY ALSO RECOMMENDED AND ATTEMPTED TO GET A DATE BUT INSURANCE DENIED DUE TO NOT HAVING PT AND DENIED ALLOGRAPH REQUESTED) AND THEN CONSULTED WITH DR. ALEXIS AND ALSO AGREED TO DO SURGERY (LUMBAR LAMINECTOMY WITH FUSION L34, L45 AND POSSIBLY L5S1) BUT ALSO GAVE PT AND INJECTIONS OPTIONS. PATIENT CHOSE TO HAVE PT CONSULT AT THIS TIME. Coughing/sneezing/straining: NEGATIVE Gait: STARTED USING A CANE 07/27/23 DUE TO BEING OFF BALANCE AND CONCERN FOR FALL. NEEDING 2 CANES FOR ABOUT 3 WEEKS BUT BACK DOWN TO 1. Bowel or Bladder Dysfunction: NO Accidents: NO Unexplained weight loss: NO Imaging: RECENT LUMBAR MRI - SPINAL STENOSIS WITH NERVE PINCHING PER PATIENT REPORT - SEE [facility] EMR. PMH/Recent major surgery: SEE BELOW. Objective Objective: Sitting/Standing Posture: POOR. REDUCED LUMBAR LORDOSIS. R ILIAC CREST HIGHER THAN LEFT. Other Observations: THIS PATIENT AMBULATES INDEP'LY INTO PT WITH STRAIGHT CANE X APPROX 300 FEET. SHE WALKS WITH DECREASED CADANCE, R HIP HIKING, DECREASED ROSCOE STRIDE LENGTH AND DECREASED HEEL STRIKE AND TOE OFF PHASES OF GAIT R > L. Sensory deficit: DECREASED LIGHT TOUCH SENSATION R ANTEROLATERAL LEG COMPARED TO LEFT WITH TESTING AND PATIENT ALSO REPORTS ROSCOE TOE NUMBNESS. PATIENT IS UNABLE TO TRANSFER SIT TO STAND WITHOUT UE ASSIST. ROM deficit: ROSCOE HIP FLEXOR, HS AND CALF TIGHTNESS. R CALF TIGHTNESS > L. Motor deficit: R HIP 3+/5, KNEE EXT 4-/5, KNEE FLEX 3+/5, ANKLE DORSI 2/5. L HIP 4-/5, KNEE EXT 4/5, KNEE FLEX 4/5, ANKLE DORSI 4-/5. Dural Signs: NEGATIVE ROSCOE LE'S. Lumbar mvmt loss: flex - MOD ext - MARCY R SG - MARCY L SG - MARCY PATIENT C/O SHOOTING PAINS DOWN R LE WITH LUMBAR FLEXION ROM TESTING AND SHE REPORTS FEELING THIS DURING ADLS DURING THE DAY ALSO EVEN THOUGH SHE IS CAREFUL. I PROCEEDED CAREFULLY WITH ALL LUMBAR ROM TESTING AND SHE DENIED PAIN WITH GENTLE TESTING INTO OTHER PLANES BUT THERE REALLY ISN'T MUCH LUMBAR MVMT AT ALL INTO EXTENSION OR ROSCOE SG WITH COMPENSATION SEEN IN LOWER THORACIC SPINE. Core strength: POOR Palpation: PATIENT DENIES PAIN WITH PALPATION OF LUMBAR, SACRAL OR HIP REGIONS. OTHER: PATIENT REPORTS SHE IS AVOIDING BENDING, LIFTING AND TWISTING MUCH POSSIBLE. Balance/Special Test Scores Oswestry Low Back Score: 16 Goals Goal 1:: DECREASE C/O LE PAIN BY 25% IN STANDING AND WALKING TO EASE ADL FUNCTION Goal Time Frame: 4-6 Weeks Goal 2:: IMPROVE BACK OSWESTY SCORE BY 5 POINTS TO IDENTIFY IMPROVEMENT IN PATIENT FUNCTION Goal Time Frame: 4-6 Weeks Goal 3:: PATIENT WILL COMPLETE 6 STANDS IN 30 SECS WITHOUT UE ASSIST TO DEMONSTRATE IMPROVED FUNCTIONAL LE STRENGTH Goal Time Frame: 6-8 Weeks Goal 4:: PATIENT WILL COMPLETE TUG IN < 20 SECS WITHOUT AD TO DEMONSTRATE IMPROVED GAIT STABILITY Goal Time Frame: 6-8 Weeks Goal 5:: PATIENT WILL DEMONSTRATE INDEP AND SAFE GAIT X 1,000 FEET WITHOUT AD IMPROVE ACTIVITY TOLERANCE Goal Time Frame: 6-8 Weeks Goal 6:: PATIENT WILL BE INDEP WITH A HEP FOR CONTINUED IMPROVEMENT ONCE FORMAL PHYSICAL THERAPY CONCLUDES. Rehabilitation Potential Physical Therapy Diagnosis: TRUNK AND LE WEAKNESS AND STIFFNESS DUE TO SPINAL STENOSIS. Anticipated Interventions Patient/Client Instruction: Educate patient on: Condition, Plan of Care and Risk Factors For the Purpose of:: To improve self management Therapeutic Exercise to Include: Strength training, Body mechanics, Postural training, Flexibilty training, Neuromotor development and Dynamic Lumbar Stabilization For the Purpose of:: To decrease pain, To increase ROM, To improve muscle performance and motor function, To increase tolerance to activity/condition/position, To improve ability of physical actions for home/community/work/leisure and To improve gait and locomotor functions Text: Thank you for the opportunity to evaluate your patient. For Medicare and Medicare HMO plans, please review the plan of care and approve it. It will need to be FAXED BACK to us at [phone] for Medicare purposes. For Medicare only, by signing this I certify the plan of care. Please let me know if there are questions or concerns regarding this plan of care. Physician Signature: Date:
--- NOTE | 2023-09-10 15:47 | HP.PTREVAL_ITS ---
Re-Evaluation Intro: Alyssa Alonso MD, It has been my pleasure to treat CHARLES KHAN over the last 2 visits for ARTHRODESIS STATUS: 08/15/23 S/P LUMBAR FUSION L34, 45.. Please see the progress note below for an update on the physical therapy plan of care! Subjective Subjective: PATIENT REPORTS HER BACK SURGERY WENT REALLY WELL. TENTATIVE RTW DATE 11/13/22. SHE STATES SHE STARTED A WALKING PROGRAM A WK AGO. WALKING 1/4 MIL WITH A CANE AND 1/4 MILE WITH CANE UNTIL YESTERDAY WHEN SHE WALKED THE WHOLE 1/2 MILE WITHOUT THE CANE AND DID OK. GOING UP AND DOWN STEPS ONE STEP AT A TIME WITH 1 HR. NOT USING CANE GENERALLY. DRIVING. NO NARCOTICS. NO GABAPENTIN. M. RELAXER NEEDED. NO BACK BRACE. CURRENT SYMPTOMS: INTERMITTENT R LBP. DIFFICULTY LIFTING L LE. PAIN: WORST 3/10, LEAST 0/10. CURRENTLY: 11/17 PATIENT DENIES ROSCOE LE PAIN, NUMBNESS AND TINGLING. OVER-ALL IN TERMS OF PAIN AND FUNCTION PATIENT REPORTS 45% IMPROVEMENT SINCE HAVING BACK SURGERY. PATIENT DENIES ANY NEW SX'S OR WORSENING SINCE SURGERY. DENIES BOWEL AND BLADDER DYSFUNCTION. DENIES ANY CHANGES IN MEDICAL HISTORY SINCE PT EVAL. Objective Objective/Function: PATIENT WAS SEEN TODAY FOR RE-ASSESSMENT DUE TO HAVING SURGERY. SHE IS WALKING BETTER, REPORTING LESS PAIN AND DEMONSTRATING IMPROVED ROSCOE LE STRENGTH SINCE INITIAL PT EVAL PRIOR TO SURGERY. SHE COMMUNICATED/DEMONSTRATED A GOOD UNDERSTANDING OF ALL INSTRUCTIONS AFTER GIVEN TODAY AND IS A GOOD CANDIDATE FOR PHYSICAL THERAPY. UPON EXAM TODAY: Sitting/Standing Posture: FAIR. REDUCED LUMBAR LORDOSIS. R ILIAC CREST HIGHER THAN LEFT. NO RELEVANT LATERAL SHIFT. Other Observations: THIS PATIENT AMBULATES INDEP'LY INTO PT WITHOUT ANY AD'S X APPROX ~300 FEET. NO LOB. PATIENT INITIALLY IS NOT ABLE TO TRANSFER SIT TO STAND WITHOUT UE ASSIST BUT WITH TRAINING WAS ABLE TO DO SO WITHOUT C/O INCREASED PAIN BUT WITH SOME DIFFICULTY. Sensory deficit: ROSCOE LE LIGHT TOUCH SENSATION GROSSLY INTACT AND SYMMETRICAL. ROM deficit: MOD ROSCOE HIP FLEXOR, MILD HS AND CALF TIGHTNESS. R CALF TIGHTNESS > L. Motor deficit: R HIP 4/5, KNEE EXT 5/5, KNEE FLEX 5/5, ANKLE DORSI 3-/5. L HIP 4-/5, KNEE EXT 4/5, KNEE FLEX 5/5, ANKLE DORSI 5/5. Dural Signs: NEGATIVE ROSCOE LE'S. Lumbar mvmt loss: NT Core strength: POOR Palpation: POSTERIOR AND L LATERAL LUMBAR INCISIONS ALL LOOK GOOD/CLOSED WITHOUT ANY SIGNS OF INFECTION. OTHER: PATIENT REPORTS SHE IS AVOIDING BENDING, LIFTING AND TWISTING MUCH POSSIBLE. PATIENT IS VERY PLEASANT AND COOPERATIVE TO WORK WITH. GOALS MODIFIED BELOW. Plan Plan Plan: PER PHYSICIAN ORDER: NO BENDING, LIFTING OR TWISTING. *FOCUS ON CORE AND LE STRENGTHENING. GAIT TRAINING (SAFETY FOR R FOOT DROP). POSTURE CORRECTION/STRENGTHENING, INS TRUCTION IN APPROPRIATE BODY MECHANICS AND ACTIVITY MODIFICATIONS. DLS WITH A NEUTRAL SPINE ONLY. ROSCOE LE ROM, STRETCHING (INCREASE AND MAINTAIN R CALF ROM) AND STRENGTHENING. HEP INSTRUCTION. WHEN OK'D BY PHYSICIAN, BEGIN BENDING AND TWISTING IN LYING WITH SKTC AND LTR BEFORE PROCEEDING IN WEIGHT BEARING. Balance/Gait/Functional tests Balance/Special Test Scores Oswestry Low Back Score: 16 Goals Goals Goal 1:: PATIENT WILL REPORT AT LEAST 75% OVER-ALL IMPROVEMENT TO ALLOW FOR RETURN TO WORK BY 11/13/22. Goal Time Frame: 6-8 Weeks Goal 2:: IMPROVE BACK OSWESTY SCORE BY AT LEAST 8 POINTS TO IDENTIFY IMPROVEMENT IN PATIENT FUNCTION. Goal Time Frame: 6-8 Weeks Goal 3:: PATIENT WILL COMPLETE 8 STANDS IN 30 SECS WITHOUT UE ASSIST TO DEMONSTRATE IMPROVED FUNCTIONAL LE STRENGTH Goal Time Frame: 6-8 Weeks Goal 4:: PATIENT WILL DEMONSTRATE INDEP AND SAFE GAIT UP AND DOWN STEPS RECIP. WITH ONE HR. Goal Time Frame: 6-8 Weeks Goal 5:: PATIENT WILL BE INDEP WITH A HEP FOR CONTINUED IMPROVEMENT ONCE FORMAL PHYSICAL THERAPY CONCLUDES. Goal Time Frame: 6-8 Weeks Goal 6:: PATIENT WILL BE INDEP WITH A HEP FOR CONTINUED IMPROVEMENT ONCE FORMAL PHYSICAL THERAPY CONCLUDES. Anticipated Interventions Anticipated Interventions Patient/Client Instruction: Educate patient on: Condition, Plan of Care and Risk Factors For the Purpose of:: To improve self management Therapeutic Exercise to Include: Strength training, Body mechanics, Postural training, Flexibilty training, Neuromotor development and Dynamic Lumbar Stabilization For the Purpose of:: To decrease pain, To increase ROM, To improve muscle performance and motor function, To increase tolerance to acti vity/condition/position, To improve ability of physical actions for home/community/work/leisure and To improve gait and locomotor functions Re-Evaluation Ending Re-evaluation ending: Please do not hesitate to contact me at [phone] by phone or if you have questions or concerns regarding this new plan of care! Sincerely, Bety Dill, PT, Cert MDT
--- NOTE | 2023-10-15 11:58 | HP.PTREVAL ---
Re-Evaluation Intro: Alyssa Alonso MD, It has been my pleasure to treat CHARLES KHAN over the last 15 visits for ARTHRODESIS STATUS: 08/15/23 S/P LUMBAR FUSION L34, 45.. Please see the progress note below for an update on the physical therapy plan of care! Subjective Subjective: PATIENT REPORTS SHE IS 85% BETTER. GOING UP STEPS BETTER, ABLE TO STAND UP FROM A CHAIR WITHOUT PUSHING UP WITH HER HANDS NOW, AND CAN STAND LONGER TO DO TASKS LIKE DISHES AND COOKING FOR UP TO 2 HOURS. SHE REPORTS SHE GETS SOME MUSCLE TIGHTENING R>L AND TIREDNESS WITH TOO MUCH STANDING AND WALKING BUT IT IS RELIEVED QUICKLY IN SITTING. UP TO WALKING 30 MINUTES 5 TIMES A WEEK WITH 20 MINUTES OF IT AT A BRISK WALK. DOING GROCERY SHOPPING INCLUDING LOADING AND UNLOADING. NO AD USE. USING TYLONOL AND MOTRIN PRN ONLY. PATIENT REPORTS HER SOCIAL ACTIVITIES ARE PRETTY NORMAL NOW TOO. FOLLOWING DR. ALEXIS'S RESTRICTIONS OF NO TWISTING AND NO LIFTING > 16 LBS AND MINIMIZING BENDING. PATIENT REPORTS WHEN SHE IS DOING THE MACHINES IN PHYSICAL THERPAY IT FEELS GOOD TO HER MUSCLES AND SHE FEELS SHE IS GETTING STRONGER. PATIENT DENIES ANY CONCERNS. HOPING TO RETURN TO WORK APPROX 11/12/22 W/OUT RESTRICTION AFTER F/U WITH DR. ALEXIS 11/06/22. Objective Objective/Function: PATIENT WAS SEEN TODAY FOR RE-ASSESSMENT OF PROGRESS TOWARD THE SET PT GOALS AND THE NEED FOR FURTHER PHYSICAL THERAPY VS READINESS FOR DISCHARGE. PATIENT IS MAKING GREAT PROGRESS WITH PT. SHE IS A GOOD CANDIDATE TO CONTINUE PT BASED ON PROGRESS MADE AND ROOM FOR FURTHER IMPROVEMENT. UPON EXAM TODAY: ROM deficit: MILD HS AND CALF TIGHTNESS. Motor deficit: ROSCOE LE'S GROSSLY 5/5 WITH MMT'ING AND PATIENT DENIES PAIN WITH TESTING. Lumbar mvmt loss: FLEX - NIL EXT - MIN R SG - MOD L SG - MOD PATIENT DENIES PAIN WITH LUMBAR ROM TESTING ALL PLANES. SLS TEST - PATIENT IS ONLY ABLE TO SLS ON EA LE X APPROX 3-4 SECONDS WITHOUT LOSING HER BALANCE. Core strength: FAIR 30 STS TEST - 8 STAIRS: PATIENT IS ABLE TO ASCEND AND DESCEND STEPS RECIP WITH ONE HR WITH GOOD BALANCE BUT UNALBE WITHOUT HR. Palpation: POSTERIOR AND L LATERAL LUMBAR INCISIONS ALL LOOK GOOD/CLOSED WITHOUT ANY SIGNS OF INFECTION. Plan Plan Plan: PER PHYSICIAN ORDER: NO TWISTING. MINIMIZE BENDING. NO LIFTING > 16 LBS. CONTINUE PT 3 TIMES A WK UNTIL SURGICAL FOLLOW UP 11/06/23. TRANSITION TO STANDING LUCI MR'S, LAE'S AND ROSCOE SIDE PUNCHES IN GYM TOLERATED. *FOCUS ON CORE AND LE STRENGTHENING. POSTURE CORRECTION/STRENGTHENING, INSTRUCTION IN APPROPRIATE BODY MECHANICS AND ACTIVITY MODIFICATIONS. DLS WITH A NEUTRAL SPINE ONLY. ROSCOE LE ROM, STRETCHING (INCREASE AND MAINTAIN R CALF ROM) AND STRENGTHENING. HEP INSTRUCTION. WHEN OK'D BY PHYSICIAN, BEGIN BENDING AND TWISTING IN LYING WITH SKTC AND LTR BEFORE PROCEEDING IN WEIGHT BEARING. Balance/Gait/Functional tests Balance/Special Test Scores Oswestry Low Back Score: 9 Goals Goals Goal 1:: PATIENT WILL REPORT AT LEAST 75% OVER-ALL IMPROVEMENT TO ALLOW FOR RETURN TO WORK BY 11/13/22. Goal Time Frame: 6-8 Weeks Goal Progress: Goal Met Goal 2:: IMPROVE BACK OSWESTY SCORE BY AT LEAST 8 POINTS TO IDENTIFY IMPROVEMENT IN PATIENT FUNCTION. Goal Time Frame: 6-8 Weeks Goal Progress: Progressing Goal 3:: PATIENT WILL COMPLETE 8 STANDS IN 30 SECS WITHOUT UE ASSIST TO DEMONSTRATE IMPROVED FUNCTIONAL LE STRENGTH Goal Time Frame: 6-8 Weeks Goal Progress: Goal Met Goal 4:: PATIENT WILL DEMONSTRATE INDEP AND SAFE GAIT UP AND DOWN STEPS RECIP. WITH ONE HR. Goal Time Frame: 6-8 Weeks Goal Progress: Goal Met Goal 5:: PATIENT WILL BE INDEP WITH A HEP FOR CONTINUED IMPROVEMENT ONCE FORMAL PHYSICAL THERAPY CONCLUDES. Goal Time Frame: 6-8 Weeks Goal Progress: Progressing Goal 6:: PATIENT WILL BE ABLE TO ASCEND AND DESCEND STEPS RECIP SAFELY WITHOUT HR. Goal Time Frame: 2-4 Weeks Anticipated Interventions Anticipated Interventions Patient/Client Instruction: Educate patient on: Condition, Plan of Care and Risk Factors For the Purpose of:: To improve self management Therapeutic Exercise to Include: Strength training, Body mechanics, Postural training, Flexibilty training, Neuromotor development and Dynamic Lumbar Stabilization For the Purpose of:: To decrease pain, To increase ROM, To improve muscle performance and motor function, To increase tolerance to activity/condition/position, To improve ability of physical actions for home/community/work/leisure and To improve gait and locomotor functions Re-Evaluation Ending Re-evaluation ending: Please do not hesitate to contact me at [phone] by phone or if you have questions or concerns regarding this new plan of care! Sincerely, Bety Dill, PT, Cert MDT
--- NOTE | 2023-11-05 11:01 | HP.PTDCSUM_ITS ---
Discharge Summary D/C summary: It has been my pleasure to treat CHARLES KHAN referred by Alyssa Alonso MD, with the diagnosis of ARTHRODESIS STATUS: 08/15/23 S/P LUMBAR FUSION L34, 45. for a total of 24 visit(s). Discharge Date: 11/05/23 Please see the following information for a summary of their discharge status. Subjective Subjective: PATIENT REPORTS SHE CAN DO MORE NOW THAN SHE COULD BEFORE HER BACK FLARED UP. SHE STATES SHE WASN'T EXERCISING BEFORE HER BACK FLARED UP. SHE STATES SHE IS PAINFREE. SHE STATES SHE CAN BE UP AND AROUND ALL DAY NOW. PLANNING TO GO BACK TO WORK 11/13/23 (WILL BE 12 WEEKS PO THIS SUNDAY - DOS 09/14/23). 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 Pain R LOW BACK: Pain Intensity (Out of 10): 2 Overall Improvement % Improvement: 100 Objective Objective/Function: PATIENT WAS SEEN TODAY FOR RE-ASSESSMENT OF PROGRESS TOWARD THE SET PT GOALS AND THE NEED FOR FURTHER PHYSICAL THERAPY VS READINESS FOR DISCHARGE. THIS PATIENT HAS MADE GREAT PROGRESS WITH PT. ALL GOALS HAVE BEEN MET AND SHE IS APPROPRIATE FOR AND AGREEABLE TO D/C. SHE STATES SHE PLANS TO GET A MEMBERSHIP HERE AT TO CONTINUE INDEP EX. UPON EXAM TODAY: ROM deficit: MILD HS AND CALF TIGHTNESS. Motor deficit: ROSCOE LE'S GROSSLY 5/5 WITH MMT'ING AND PATIENT DENIES PAIN WITH TESTING. DTR'S: UNABLE TO ELICIT ROSCOE LE DTR'S. Lumbar mvmt loss: FLEX - NIL EXT - MIN R SG - MIN L SG - MIN PATIENT DENIES PAIN WITH LUMBAR ROM TESTING ALL PLANES. SLS TEST - PATIENT IS ONLY ABLE TO SLS ON EA LE X APPROX 3-4 SECONDS WITHOUT LOSING HER BALANCE. Core strength: FAIR STAIRS: PATIENT IS ABLE TO ASCEND AND DESCEND STEPS RECIP WITHOUT HR WITH GOOD BALANCE. Goals Goal 1:: PATIENT WILL REPORT AT LEAST 75% OVER-ALL IMPROVEMENT TO ALLOW FOR RETURN TO WORK BY 11/13/22. Goal Progress: Goal Met Goal 2:: IMPROVE BACK OSWESTY SCORE BY AT LEAST 8 POINTS TO IDENTIFY IMPROVEMENT IN PATIENT FUNCTION. Goal Progress: Progressing Goal 3:: PATIENT WILL COMPLETE 8 STANDS IN 30 SECS WITHOUT UE ASSIST TO DEMONSTRATE IMPROVED FUNCTIONAL LE STRENGTH Goal Progress: Goal Met Goal 4:: PATIENT WILL DEMONSTRATE INDEP AND SAFE GAIT UP AND DOWN STEPS RECIP. WITH ONE HR. Goal Progress: Goal Met Goal 5:: PATIENT WILL BE INDEP WITH A HEP FOR CONTINUED IMPROVEMENT ONCE FORMAL PHYSICAL THERAPY CONCLUDES. Goal Progress: Goal Met Goal 6:: PATIENT WILL BE ABLE TO ASCEND AND DESCEND STEPS RECIP SAFELY WITHOUT HR. Goal Progress: Goal Met Plan Plan: D/C. D/C Information d/c sentence: If there are questions or concerns regarding this patient's physical therapy, please feel free to call me at [phone]. Thank you for the referral of this patient. Sincerely, Bety Dill, PT, Cert MDT Balance/Gait/Functional tests Balance/Special Test Scores Oswestry Low Back Score: 0 Improvement % Improvement: 100
== END 2023-11-02 19:00 | disposition home or self-care (01) ==
LOC: PT 10:00
PROVIDERS: PCP Family Medicine; Visit Provider Family Medicine
DX: M54.16 Radiculopathy, lumbar region (principal)
CPT/HCPCS: 97110; 97162; 97164; 97530

== ENCOUNTER → 2023-11-29 | Outpatient (CLI) | payer OTHER, SELFPAY ==
[2023-11-29 10:54] LABS: Anion Gap 2 (5-15); BUN 15 mg/dL (7-18); BUN/Creat Ratio 22.8 RATIO (10-20); Calcium,Total 9.2 mg/dL (8.5-10.1); Chloride 107 mmol/L (98-107); Cholesterol 186 mg/dL (200); Creatinine, Serum 0.66 mg/dL (0.55-1.02); EST Glomerular Filtration Rate 97 mL/min (>60); Est Glom Filt Rate - Afr Amer 117 mL/min (>60); Free T3 2.2 pg/mL (2.18-3.98); Glucose 100 mg/dL (74-106); High Density Lipoprotein 61 mg/dL; Potassium 3.9 mmol/L (3.5-5.1); Sodium Level 139 mmol/L (136-145); T4 Free Direct 1.01 ng/dL (0.76-1.46); Thyroid Stim Hormone (TSH) 1.16 uIU/mL (0.358-3.74); Triglycerides 79 mg/dL; Very Low Density Lipoprotein 16 mg/dL (5-40)
== END | disposition home or self-care (01) ==
LOC: MTLAB 09:26
PROVIDERS: PCP Family Medicine; Referring Provider Family Medicine; Visit Provider Family Medicine
DX: E03.9 Hypothyroidism, unspecified (principal); I10 Essential (primary) hypertension
CPT/HCPCS: 36415; 80048; 80061; 84439; 84443; 84481

== ENCOUNTER → 2024-07-21 | Outpatient (CLI) | payer OTHER, SELFPAY ==
--- NOTE | 2024-07-21 17:00 | RAD_ITS ---
EXAM: XR LEFT KNEE COMPLETE, 4 OR MORE VIEWS CLINICAL INDICATION: Left knee pain. TECHNIQUE: Four or more views of the left knee. COMPARISON: 06/28/2018. FINDINGS: BONES/JOINTS: Mild narrowing in the lateral femorotibial compartment due to chondromalacia. Minimal bone spur in the left lateral proximal tibial condyle and in the left lateral femoral condyle. Mild narrowing of the patellofemoral articulation. No acute fracture. No subluxation. Normal alignment. No sclerotic or destructive changes observed. SOFT TISSUES: Unremarkable. No soft tissue swelling or gas. No radiopaque foreign body. RAD/Knee 4 or More Views IMPRESSION: 1. 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 These are new findings when compared to 06/28/2018. 2. No acute osseous abnormality of the left knee. Electronically Signed: Jacobo Renee MD at 15:29 EDT ,
== END | disposition home or self-care (01) ==
PROVIDERS: PCP Family Medicine; Referring Provider Family Medicine; Visit Provider Family Medicine
DX: M25.562 Pain in left knee (principal)
CPT/HCPCS: 73564

== ENCOUNTER 2024-09-18 14:52 | Day surgery (SDC) | payer OTHER, SELFPAY ==
[2024-09-18 15:04] VITALS: BP 149/92; PULSE 78; RESP 16; TEMP 36.1; O2SAT 98; BMI 37.9
--- NOTE | 2024-09-18 15:16 | PCM.HP.BLA ---
History and Physical Date of Admission: 09/18/24 The patient is examined and there are no changes to the H&P of 08/20/24. Pt with a neoplasm of the lower lip. She presents for excision with submission to pathology. Informed consent was obtained. 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
[2024-09-18 15:27] VITALS: BP 154/81; BP 154/84; O2SAT 100; O2SAT 93; O2SAT 94; O2SAT 95; O2SAT 98
[2024-09-18] MEDS: Lidocaine 1% /Epi 1:100 9 ML, Sodium Bicarbonate 1 MEQ OPERA.SITE (15:30)
--- NOTE | 2024-09-18 15:35 | LES_PTH ---
PATIENT: CHARLES KHAN [place] [facility] [place][id number] AGE/SX: 63/F ROOM: RE09/18/[address]: Dr. Cristina Alicea MD : 1960 BED: DIS: 09/18/2024 SPEC #: [id number] RECD: 09/18/24 18:04 STATUS: JAMA KARINA #: [id number] JULIO: 09/18/24 15:[address]: Cristina Alicea DEPT: SURGICAL PATHOLOGY RECD BY: Lizbeth Madera ENTERED: 09/19/24 09:37 SP TYPE: Lesion OTHR DR: Dr. Raul Brooks MD Tissues: Skin of lip, NOS Procedures: Surgery Specimen Level IV HEADER OPERATION: Excision lesion lower lip with intermediate closure PRE-OP DIAGNOSIS: Neoplasm of ulceration behavior of skin of lip TISSUE SUBMITTED: Neoplasm of lower lip MICROSCOPIC DIAGNOSIS Lower lip lesion, excisional biopsy: Benign vascular proliferation, capillary hemangioma. Solar elastosis. Negative for malignancy. SJ. 09/22/2024 MICROSCOPIC DESCRIPTION Slides are reviewed. GROSS DESCRIPTION Received in fixative is one container labeled with the patient's name and designated Neoplasm lower lip. The specimen consists of a small fragment of apparent skin measuring 5.0mm in length, 3.0mm in greatest width and 2.0mm in greatest depth. Definitive lesion is not identified grossly. Surgical margins are inked and the specimen is serially sectioned and submitted totally in one cassette with the two smallest triangular fragments representing end margins for a total of four fragments in one cassette. PW. 09/19/2024 TC:1 CPT:25638
[2024-09-18] MEDS: Bacitracin 500 UNITS/GM PACKET (15:43)
--- NOTE | 2024-09-18 15:48 | EX.PCM.DISCH ---
Discharge Instructions Dressing / Incision Additional Dressing/Incision Instructions:: Keep your head elevated (recliner position) for the next 2-3 nights to prevent swelling and bruising. Take the oral antibiotic (Keflex) 2 times a day until finished Apply antibiotic ointment (like Neosporin, bacitracin, or triple antibiotic ointment) 2-3 times a day to your lip. Follow Up Care Please Follow Up With: Cristina Alicea MD When: As directed Test Results: Test results from this visit will be discussed in further detail at your follow-up appointment, if applicable. Discharge Plan Admission Attending Provider: Cristina Alicea Primary Care Provider: Raul Brooks Instructions Print Language: Ethiopian Discharge Orders/Prescriptions Prescriptions: New cephalexin 500 mg capsule 500 mg PO BID 5 Days Qty: 10 0RF No Action levothyroxine [Synthroid] 88 mcg tablet 88 mcg PO DAILY metoprolol succinate [Toprol XL] 25 mg tablet extended release 24 hr 25 mg PO DAILY omeprazole 20 mg capsule,delayed release(DR/EC) 20 mg PO DAILY duloxetine [Cymbalta] 30 mg capsule,delayed release(DR/EC) 60 mg PO BREAKFAST cetirizine [Zyrtec] 10 mg tablet 10 mg PO DAILY zolpidem [Ambien] 5 mg tablet 5 mg PO QHS acetaminophen [Tylenol Extra Strength] 500 mg tablet 1,000 mg PO BID ibuprofen 400 mg tablet 400 mg PO BID silver sulfadiazine [Silvadene] 1 % cream 1 applic topical DAILY Qty: 20 0RF Rx Instructions: apply a thin layer to the affected area 1 x a day duloxetine 30 MG capsule,delayed release(DR/EC) 30 mg PO QHS Referrals / Follow Up: Raul Brooks MD [Primary Care Provider] - Disposition Disposition (needs filled in before D/C Order can be placed): Home, Self Care
--- NOTE | 2024-09-18 15:51 | PCM.OPRPT ---
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: Operative Report (Standard) Operative Information Date of Procedure: 09/18/24 Pre-Operative Diagnosis: Neoplasm of left lower lip Post-Operative Diagnosis: Same Surgery/Procedure Performed: Excision neoplasm left lower (1.3 cm) residency director: No Type of Anesthesia: Local RN Documented Start/Stop Times: Operation Date: 09/18/24 15:35 Case Time Into Pre-Op 09/18/24 14:53 Into Room 09/18/24 15:21 Out of Pre-Op 09/18/24 15:25 Procedure Start 09/18/24 15:30 Procedure End 09/18/24 15:44 Out of Room 09/18/24 15:47 Into Phase II Recovery 09/18/24 15:49 Procedure Start Time: 15:30 Procedure Stop Time: 15:44 Select all DRAINS/GRAFTS/IMPLANTS that apply: None Estimated Blood Loss: Minimal Specimen collected: Yes Description of specimen(s) removed: Neoplasm of lower lip Description of surgery: The patient presents with a growing or changing neoplasm of the left lower lip. She presents for excision of the neoplasm with submission for pathologic evaluation. She is marked in the preop holding area prior to surgery. Informed consent is obtained. The patient is brought to the operating room and placed on the operating room table in the supine position. The lip is prepped and draped in the usual sterile fashion. 1% Xylocaine with epinephrine is used for local anesthetic. Following this, the neoplasm is excised with the Ellman cautery and passed off the operative field to be sent to pathology. Hemostasis is controlled with cautery. The site is then closed with a running 5-0 chromic suture. Antibiotic ointment is placed on the site. She tolerated the procedure well was taken to the recovery area in an awake and stable condition. Needle and sponge counts are correct. Surgical Findings: Same as above Complications Complications: No Admit VTE Documentation VTE Mechan Device Prophylaxis: None Reason prophylaxis not ordered: Treatment Not Indicated
[2024-09-18 16:02] VITALS: BP 142/89; BP 149/92; PULSE 69; RESP 16; TEMP 37.1; O2SAT 97
== END 2024-09-18 16:39 | disposition home or self-care (01) ==
LOC: SDC 14:53 → AC 14:53
PROVIDERS: PCP Family Medicine; Referring Provider Plastic Surgery; Visit Provider Plastic Surgery
PROC: (CPT 11442; principal; 2024-09-18 15:25)
DX: D48.5 Neoplasm of uncertain behavior of skin (principal); D18.09 Hemangioma of other sites; L57.8 Other skin changes due to chronic exposure to nonionizing radiation
CPT/HCPCS: 11442; 88305

== ENCOUNTER → 2024-12-02 | Outpatient (CLI) | payer OTHER, SELFPAY ==
--- NOTE | 2024-12-02 12:31 | BI_ITS ---
PROCEDURE: SCRN MAMM (CAD)W/ABDOULAYE BILAT REASON FOR EXAM: F, Age 63 y/o, presents for annual screening mammogram. Family history of breast cancer in a paternal aunt at 76, paternal cousin at 55 and paternal cousin at 45. TECHNIQUE: Bilateral screening digital breast tomosynthesis with 2D and 3D images. Computer aided detection. COMPARISON: 11/07/2022 FINDINGS: The breasts are almost entirely fatty. No suspicious masses, areas of developing architectural distortion, or suspicious calcifications. BI/SCRN MAMM (CAD)W/ABDOULAYE BILAT IMPRESSION: There is no mammographic evidence of malignancy in either breast. BI-RADS 1: NEGATIVE. RECOMMEND ANNUAL MAMMOGRAPHIC SCREENING. Follow-up code: Routine Follow-up The patient will be notified of the results by letter. Reading Location: [facility]
== END | disposition home or self-care (01) ==
LOC: OPBI 12:29
PROVIDERS: PCP Family Medicine; Referring Provider Family Medicine; Visit Provider Family Medicine
DX: Z12.31 Encounter for screening mammogram for malignant neoplasm of breast (principal); Z80.3 Family history of malignant neoplasm of breast
CPT/HCPCS: 77063; 77067

== ENCOUNTER → 2025-02-10 | Outpatient (CLI) | payer OTHER, SELFPAY ==
[2025-02-10 13:23] LABS: ALB/GLOB Ratio 1.5 RATIO (0.9-2.4); AST(SGOT) 24 U/L (<=31); Alanine Aminotransfer ALT/SGPT 18 U/L (<=34); Albumin, Serum 4.1 g/dL (3.4-4.8); Alkaline Phosphatase 82 U/L (35-104); Anion Gap 11 (5-15); BUN 17 mg/dL (4-19); BUN/Creat Ratio 24.7 RATIO (10-20); Calcium,Total 8.8 mg/dL (7.6-11.0); Carbon Dioxide 25.9 mmol/L (21.0-32.0); Chloride 103 mmol/L (98-108); Cholesterol 169 mg/dL (<=200); Creatinine, Serum 0.67 mg/dL (0.70-1.20); EST Glomerular Filtration Rate 97 (>60); Free T3 2.2 pg/mL (2.18-3.98); Globulin 2.8 g/dL (2.2-4.2); Glucose 97 mg/dL (70-99); High Density Lipoprotein 57 mg/dL; Low Density Lipoprotein Calc. 99 mg/dL; Potassium 4.1 mmol/L (3.3-5.1); Protein, Total 6.9 g/dL (5.9-8.4); Sodium Level 140 mmol/L (133-145); Total Bilirubin 0.48 mg/dL (0.00-1.30); Triglycerides 68 mg/dL; Very Low Density Lipoprotein 14 mg/dL (5-40); cholesterol:hdl ratio screen 2.99
== END | disposition home or self-care (01) ==
LOC: MTLAB 10:49
PROVIDERS: PCP Family Medicine; Referring Provider Family Medicine; Visit Provider Family Medicine
DX: I10 Essential (primary) hypertension (principal); E03.9 Hypothyroidism, unspecified
CPT/HCPCS: 36415; 80053; 80061; 84439; 84443; 84481

== ENCOUNTER → 2025-09-17 | Outpatient (CLI) | payer OTHER, SELFPAY ==
[2025-09-17 12:57] LABS: Anion Gap 8 (5-15); BUN 16 mg/dL (4-19); BUN/Creat Ratio 23.7 RATIO (10-20); Calcium,Total 9.0 mg/dL (7.6-11.0); Carbon Dioxide 30.2 mmol/L (21.0-32.0); Chloride 103 mmol/L (98-108); Cholesterol 191 mg/dL (<=200); Free T3 2.4 pg/mL (2.18-3.98); Glucose 105 mg/dL (70-99); Low Density Lipoprotein Calc. 116 mg/dL; Potassium 4.1 mmol/L (3.3-5.1); Triglycerides 88 mg/dL; Very Low Density Lipoprotein 18 mg/dL (5-40); cholesterol:hdl ratio screen 3.20
== END | disposition home or self-care (01) ==
LOC: MTLAB 10:40
PROVIDERS: PCP Family Medicine; Referring Provider Family Medicine; Visit Provider Family Medicine
DX: E03.9 Hypothyroidism, unspecified (principal); I10 Essential (primary) hypertension
CPT/HCPCS: 36415; 80048; 80061; 84439; 84443; 84481